=== PATIENT | female | born 1985 | race Caucasian/White ===

== ENCOUNTER → 2018-01-26 12:38 | Outpatient (CLI) | payer OTHER, SELFPAY ==
[2018-01-26 13:48] LABS: Absolute Lymphocyte Count 1.19 X10^3/ul (0.83-4.51); Absolute Neutrophil Count 5.2 X10^3/uL (2.0-7.7); Basophil# 0.02 X10^3/uL; Basophil% 0.3 % (0-1); Eosinophil# 0.09 X10^3/uL; Eosinophils% 1.3 % (0-5); Hematocrit 38.8 % (37-47); Hemoglobin 12.9 g/dl (12.0-15.0); Lymphocyte # 1.19 X10^3/ul (4.0); Lymphocyte % 17.1 % (19-41); Mean Corp Hgb Conc 33.2 g/gl (32-36); Mean Corpuscular Hgb 30.3 pg (27.0-32.0); Mean Corpuscular Volume 91.1 fL (81-99); Mean Platelet Vol. 10.2 fl (6.2-12.0); Monocyte# 0.43 X10^3/uL; Monocyte% 6.2 % (0-10); Neutrophil # 5.23 X10^3/uL (2.7-7.7); Platelet Count 264 K/mm3 (150-450); RBC Distribution Width CV 13.3 % (11.6-14.6); RBC Distribution Width SD 43.9 fl (35.1-43.9); Red Blood Count 4.26 M/mm3 (4.2-5.4)
[2018-01-26 13:53] LABS: POSITIVE COUNT NO; POSITIVE DIFFERENTIAL NO; POSITIVE MORPHOLOGY NO
[2018-01-26 16:37] LABS: Chlamydia Trachomatis by PCR Negative (Negative); Neisserai gonorrhoeae by PCR Negative (Negative); Probe Check PASS; Sample Adequacy Control PASS; Specimen Processing Control PASS
[2018-01-27 02:29] LABS: Rapid Plasmin Reagin (RPR) NONREACTIVE (NONREACTIVE)
[2018-01-27 09:01] LABS: HEPATITIS B SURFACE AG Negative (Negative)
[2018-01-27 13:43] LABS: HIV - WCH Non-Reactive (Nonreactive); Rubella IgG 170.7 IU/mL
== END ==
PROVIDERS: Visit Provider Obstetrics & Gynecology
DX: Z34.90 Encounter for supervision of normal pregnancy, unspecified, unspecified trimester (principal); Z3A.00 Weeks of gestation of pregnancy not specified
CPT/HCPCS: 36415; 85025; 86592; 86703; 86762; 86850; 86900; 87086; 87088; 87340; 87491; 87591

== ENCOUNTER → 2018-03-28 15:39 | Outpatient (CLI) | payer OTHER, SELFPAY | PROVIDERS: Referring Provider Nurse Practitioner Women's Health; Visit Provider Nurse Practitioner Women's Health | DX: Z36.9 Encounter for antenatal screening, unspecified (principal) | CPT/HCPCS: 36415 ==

== ENCOUNTER → 2018-06-16 16:45 | Outpatient (CLI) | payer OTHER, SELFPAY ==
[2018-06-16 15:46] VITALS: BMI 30.5
[2018-06-16 17:05] LABS: Absolute Lymphocyte Count 1.71 X10^3/ul (0.83-4.51); Absolute Neutrophil Count 6.2 X10^3/uL (2.0-7.7); Basophil# 0.01 X10^3/uL; Basophil% 0.1 % (0-1); Eosinophil# 0.24 X10^3/uL; Eosinophils% 2.7 % (0-5); Hematocrit 36.2 % (37-47); Hemoglobin 11.9 g/dl (12.0-15.0); Lymphocyte # 1.71 X10^3/ul (4.0); Lymphocyte % 19.3 % (19-41); Mean Corp Hgb Conc 32.9 g/gl (32-36); Mean Corpuscular Hgb 30.4 pg (27.0-32.0); Mean Corpuscular Volume 92.6 fL (81-99); Mean Platelet Vol. 10.4 fl (6.2-12.0); Monocyte# 0.73 X10^3/uL; Monocyte% 8.2 % (0-10); Neutrophil # 6.16 X10^3/uL (2.7-7.7); Neutrophil % 69.4 % (47-70); POSITIVE COUNT NO; POSITIVE DIFFERENTIAL NO; POSITIVE MORPHOLOGY NO; Platelet Count 294 K/mm3 (150-450); RBC Distribution Width CV 12.5 % (11.6-14.6); RBC Distribution Width SD 41.4 fl (35.1-43.9); Red Blood Count 3.91 M/mm3 (4.2-5.4); White Blood Count 8.9 K/mm3 (4.4-11.0)
[2018-06-16 18:03] LABS: Glucose Challenge Gest 1H 50g 67 mg/dL (70-140)
== END ==
PROVIDERS: Referring Provider Obstetrics & Gynecology; Visit Provider Obstetrics & Gynecology
DX: Z34.90 Encounter for supervision of normal pregnancy, unspecified, unspecified trimester (principal)
CPT/HCPCS: 36415; 82950; 85025; 86850; 86900

== ENCOUNTER 2018-06-30 15:58 | Emergency (ER) | payer OTHER, SELFPAY ==
[2018-06-30 15:44] VITALS: BMI 30.5
[2018-06-30 15:59] VITALS: BP 111/71; PULSE 88; RESP 19; TEMP 36.1; O2SAT 97; BMI 31.3
--- NOTE | 2018-06-30 16:33 | ED.VISSUMM ---
- ER Visit Summary Date of Service: 06/30/18 Chief Complaint: Left posterior thigh pain History of Present Illness: The patient is a 32 F who presents with left posterior thigh pain. She was sent here by Dr. Ordaz. She is in her third trimester. She has had this pain for 1 month. It is worse with movement. It is in the back part of the thigh. She has no history of DVT or PE. She has no risk factors for DVT or PE. The pain is worse this week which is why she came in. She does not take anything for this at home. She denies any chest pain or shortness of breath. Physical Examination: Vital signs reviewed. Left lower extremity reveals no swelling. There is no tenderness. There is no skin changes. No palpable cords. Pain is slightly worse with movement. Otherwise her exam is unremarkable Test Results: Duplex ultrasound negative for DVT Emergency Department Course and Treatment: Patient was given Tylenol. She will continue Tylenol, ice and heat at home. She will follow-up with her CERTIFIED REGISTERED DENTAL ASSISTANT Treatment Plan: [] Disposition: Discharge Impression: Left hamstring pain This note was generated with Ravti dictation software. It may contain incorrect words, spelling, and punctuation that were not noted in review of the chart prior to signing ED Disposition - Plan for ED Patient: Referrals: Care Physician,No Primary [Primary Care Provider] -
[2018-06-30] MEDS: Acetaminophen 325 MG Tablet 650 MG PO (16:38)
--- NOTE | 2018-06-30 16:42 | US_ITS ---
STUDY: VENOUS DOPPLER ULTRASOUND - LEFT LOWER EXTREMITY REASON FOR EXAM: Female, 32 years old. Left leg pain TECHNIQUE: Ultrasound evaluation of the deep vein system to include gary-scale imaging and compression was performed. Gary-scale imaging and Doppler sonographic evaluation, including duplex spectral analysis and qualitative color flow sonography, was performed. COMPARISON: None. FINDINGS: Common Femoral Vein: Normal compression, spontaneity and augmentation. Normal color Doppler. Common Femoral Vein/Greater Saphenous Junction: Normal compression, spontaneity and augmentation. Normal color Doppler. Femoral Proximal: Normal compression, spontaneity and augmentation. Normal color Doppler. Femoral Middle: Normal compression, spontaneity and augmentation. Normal color Doppler. Femoral Distal: Normal compression, spontaneity and augmentation. Normal color Doppler. Popliteal Vein: Normal compression, spontaneity and augmentation. Normal color Doppler. Posterior Tibial Vein: Normal compression, spontaneity and augmentation. Normal color Doppler. Peroneal Vein: Normal compression, spontaneity and augmentation. Normal color Doppler. US/Venous Duplex Imag/Limited/Uni IMPRESSION: Normal venous Doppler ultrasound of the lower extremity. Electronically Signed: Anton Vo DO at 17:53 EST Tel , Service support ,
--- NOTE | 2018-06-30 17:43 | ED.DEP ---
ED Disposition - Plan for ED Patient: Disposition: Home or Assisted Living Instructions: ED Strain Muscle Ext Referrals: Care Physician,No Primary [Primary Care Provider] -
== END 2018-06-30 17:53 | disposition home or self-care (01) ==
PROVIDERS: Emergency Provider Emergency Medicine
DX: O26.893 Other specified pregnancy related conditions, third trimester (principal); M79.652 Pain in left thigh; R11.0 Nausea; Z3A.00 Weeks of gestation of pregnancy not specified
CPT/HCPCS: 93971; 99283

== ENCOUNTER → 2018-08-11 16:47 | Outpatient (CLI) | payer OTHER, SELFPAY ==
[2018-08-11 16:01] VITALS: BMI 31.3
== END ==
PROVIDERS: Referring Provider Obstetrics & Gynecology; Visit Provider Obstetrics & Gynecology
DX: Z34.90 Encounter for supervision of normal pregnancy, unspecified, unspecified trimester (principal)
CPT/HCPCS: 87081

== ENCOUNTER 2018-09-01 14:15 | Inpatient (IN) | payer OTHER, SELFPAY ==
[2018-06-16 15:46] VITALS: BMI 30.5
[2018-09-01] VITALS (13 sets, daily range): BP systolic 107–124; BP diastolic 55–82; PULSE 61–83; RESP 16–18; TEMP 36.1–36.6; O2SAT 95–100; BMI 31.9; BMI 31.2
[2018-09-01] MEDS: Lactated Ringers 1,000 ML 999 ML IV (14:50)
[2018-09-01 16:07] LABS: Absolute Lymphocyte Count 1.48 X10^3/ul (0.83-4.51); Absolute Neutrophil Count 5.5 X10^3/uL (2.0-7.7); Basophil# 0.01 X10^3/uL; Basophil% 0.1 % (0-1); Eosinophil# 0.16 X10^3/uL; Eosinophils% 2.1 % (0-5); Hematocrit 33.1 % (37-47); Hemoglobin 10.8 g/dl (12.0-15.0); Lymphocyte # 1.48 X10^3/ul (4.0); Lymphocyte % 19.2 % (19-41); Mean Corp Hgb Conc 32.6 g/gl (32-36); Mean Corpuscular Hgb 28.4 pg (27.0-32.0); Mean Corpuscular Volume 87.1 fL (81-99); Mean Platelet Vol. 12.3 fl (6.2-12.0); Monocyte# 0.53 X10^3/uL; Monocyte% 6.9 % (0-10); Neutrophil # 5.49 X10^3/uL (2.7-7.7); Neutrophil % 71.2 % (47-70); Platelet Count 196 K/mm3 (150-450); RBC Distribution Width CV 13.9 % (11.6-14.6); RBC Distribution Width SD 43.7 fl (35.1-43.9); White Blood Count 7.7 K/mm3 (4.4-11.0)
[2018-09-01 16:09] LABS: Differential Indicated SCAN CRITERIA MET; POSITIVE COUNT YES; POSITIVE DIFFERENTIAL NO; POSITIVE MORPHOLOGY NO
[2018-09-01] MEDS: Sodium Citrate/Citric Acid 30 ML UDC PO (16:18)
[2018-09-01] MEDS: Lactated Ringers 1,000 ML 150 ML IV (16:18)
[2018-09-01] MEDS: Oxytocin 30 units/NS 500 ml 30 UNITS/500 ML IV.SOLN 167 UNITS IV (16:55)
[2018-09-01] MEDS: Ketorolac 30 MG/ML Syringe IV ×2 (17:19→23:25)
--- NOTE | 2018-09-01 17:25 | HP.PCM_ITS ---
- Problem List (1) Oligohydramnios in malagon in third trimester Status: Acute (2) History of delivery Status: Acute Comment: desires tolac- consent signed. 57-72% likelihood of success. (3) Status: Acute Qualifiers: Comment: declines genetic and carrier screening. AFP negative. MFM US anatomy normal-Echogenic foci adjacent to the stomach noted again. (4) Rh negative status during Status: Acute Qualifiers: Comment: rhogam prn and at 28 weeks (5) Supervision of normal Status: Acute Qualifiers: Comment: PRR VIVIAN 09/04/18 gender surprise PC Zina Doyle History and Physical Date of Admission: 09/01/18 Intake Vital Signs 09/01/18 Body Mass Index (BMI) 31.9 09/01/18 Height 5 ft 4 in 09/01/18 Weight: 184 lb 8 oz 09/01/18 Body Mass Index (BMI) 31.6 09/01/18 Blood Pressure 128/82 H 09/01/18 Blood Pressure Location Lt brachial 09/01/18 Blood Pressure Position Sitting Intake Visit Reasons: 39 WEEK OB Accompanied by: Self Allergies amoxicillin Allergy (Mild, Verified 09/01/18 09:51) rash Penicillins Allergy (Mild, Verified 09/01/18 09:51) unknown Medications docosahexanoic acid 200 mg capsule 400 mg PO DAILY 01/26/18 [History Confirmed 09/01/18] Last Menstral Period: 11/28/17 Zika: Zika virus screening: Negative : No PFSH PFSH Medical History Abnormal Pap smear of cervix (Acute) Surgical History History of colposcopy (Resolved) S/P (Resolved) Social History Smoking Status: Never smoker alcohol intake: never substance use type: does not use caffeine: Yes what type of physical activity do you participate in: walking frequency: 3-4 times per week seatbelt use: always do you feel safe at home: Yes additional social history: [id number] Patient is a teacher Pregancy History 2 Elective abortions Hx Para 1 Spontaneous abortions Hx # Term Pregnancies Ectopic pregnancies Hx # Pregnancies Multiple births # of living children Past Pregnancies Del. Date Name GA/Weeks Outcome Route Bth Weight Gen Labor Lgth Anesthesia Del Locatn Provider FOB 11/12/16 Zina 40 live - full term 7lbs 9oz Female spinal [facility] Dr. Dionna Kwon Delivery Date: 11/12/16 On 01/26/18 @ 12:05 Melody Ordaz failed induction then came back in another day and was induced, questionable adequate trial of pushing. HPI 39 WEEK OB: Details: MAXIMO MARTINEZ is a 33 year old who presents for routine OB visit. OB Visit VIVIAN Calculator Estimated Delivery Date 09/04/18 Based on LMP (certain) 11/28/17 Current WG 39w 4d Number 1 Expected Delivery Route/Plan consider , 57-72 % of success, uptodate education given and reviewed risks and benefits of TOLAC. patient wishes to proceed, consent signed Specific Issue/Plans flu vaccine: declines tdap vaccine: given rhogam: given 28 weeks LARC form signed: declined labor support person: Doyle pain management: epidural cut cord/dad catch: ? : yes PP control planned: none special requests: Initial Weight: 165 lb Date EGA Weight BP Urine Prot Glucose FHR FuHt Pres Mov CTX Dilation Effaced St Visit Note 02/22/18 12w 2d 165 lb (+0 oz) 116/62 Negative Negative 160 Doing well. No VB, LOF. Mild and manageable nausea 03/24/18 16w 4d 164 lb 6 oz (-10 oz) 112/66 Negative Negative 157 Doing well. No VB, LOF. 04/21/18 20w 4d 171 lb (+6 lb) 120/68 Positive Negative 150 no uti complaints no vb cramping education given 05/19/18 24w 4d 172 lb (+7 lb) 118/72 Negative Negative 150 no vb lof good fm no regular ctx. 06/16/18 28w 4d 178 lb (+13 lb) 120/68 150 28 no vb lof good fm no regular ctx 06/30/18 30w 4d 183 lb 6 oz (+18 lb 6 oz) 124/72 Negative Negative 130 31 co left thigh pain increasing- recommend doppler of lower extremity. no vb lof good fm no regular ctx 07/14/18 32w 4d 183 lb (+18 lb) Negative Negative 145 32 no vb lof good fm no regular ctx 07/28/18 34w 4d 182 lb (+17 lb) 120/78 Negative Negative 143 34 Active absent NO VB, LOF. Doing well. 08/11/18 36w 4d 185 lb 6 oz (+20 lb 6 oz) 138/80 Trace Negative 140 36 Cephalic Active absent 0.5 no vb lof good fm no regular ctx gbs 08/18/18 37w 4d 185 lb (+20 lb) 128/76 Negative Negative 140 37 Cephalic Active absent no vb lof good fm n oregualr ctx 08/25/18 38w 4d 186 lb (+21 lb) 122/70 Negative Negative 140 38 Cephalic Active absent 1.5 2: 0 -4 no vb lof good fm no regular ctx 09/01/18 39w 4d 184 lb 8 oz (+19 lb 8 oz) 128/82 Negative Negative 140 37 Cephalic Active absent 1.5 2: 0 -2 no vb lof good fm n oregualr ctx, fundal height low- rinku 3.7 cm unfavorable cervix recommend RLTCS. patient agreeable. schedule for 5 o clock today Visit Notes Visit Date: 09/01/18 ??fundal height low- rinku 3.7 cm unfavorable cervix recommend RLTCS. patient agreeable. schedule for 5 o clock today ??Melody Ordaz MD on 09/01/18 ??no vb lof good fm n oregualr ctx, ??Melody Ordaz MD on 09/01/18 Visit Date: 08/25/18 ??no vb lof good fm no regular ctx ??Melody Ordaz MD on 08/25/18 Visit Date: 08/18/18 ??no vb lof good fm n oregualr ctx ??Melody Ordaz MD on 08/18/18 Visit Date: 08/11/18 ??no vb lof good fm no regular ctx gbs ??Melody Ordaz MD on 08/11/18 Visit Date: 07/28/18 ??NO VB, LOF. Doing well. ??ADI Ballesteros on 07/28/18 Visit Date: 07/14/18 ??no vb lof good fm no regular ctx ??Melody Ordaz MD on 07/14/18 Visit Date: 06/30/18 ??co left thigh pain increasing- recommend doppler of lower extremity. no vb lof good fm no regular ctx ??Melody Ordaz MD on 06/30/18 Visit Date: 06/16/18 ??no vb lof good fm no regular ctx ??Melody Ordaz MD on 06/16/18 Visit Date: 05/19/18 ??no vb lof good fm no regular ctx. ??Melody Ordaz MD on 05/19/18 Visit Date: 04/21/18 ??no uti complaints no vb cramping education given ??Melody Ordaz MD on 04/21/18 Visit Date: 03/24/18 ??Doing well. No VB, LOF. ??ADI Ballesteros on 03/24/18 Visit Date: 02/22/18 ??Doing well. No VB, LOF. Mild and manageable nausea ??ADI Ballesteros on 02/22/18 ACOG First Trimester First Trimester: Desire for , Alcohol, Tobacco Cessation, Illicit/Recreational Drug/Substance Use, Intimate Partner Violence, Barriers to care, Unstable Housing, Communication Barriers, Environmental/Work Hazards, Anticipated Course of Care, Toxoplasmosis Precations, Use of Any medications, Sexual activity, Exercise, Dental Care, Sauna/Hot tub use, Seat Belt use, Childbirth classes/Hospital facilities, , Travel, Indications for US and Screening for Aneuploidy Second Trimester Second Trimester: Signs and Symptoms of Labor, Selecting a care provider, Reproductive Life Planning, Care Planning, Tobacco Cessation, Depression/Anxiety and Intimate Partner Violence Third Trimester Third Trimester: Pain Management Plans, Labor support person(s), Immediate Larc, Movement Monitoring and Feeding Yes ; discussed Trial of Labor after Counseling or discussed Circumcision preference Diagnostics Diagnostics Labs Blood Type B NEGATIVE 06/16/18 Antibody Screen NEGATIVE 06/16/18 Hct 36.2 % (37-47) L 06/16/18 Hgb 11.9 g/dl (12.0-15.0) L 06/16/18 Glucose 1 Hr 50 gm 67 mg/dL (70-140) L 06/16/18 Miscellaneous Test 03/28/18 Details: HIV: Urine Culture: Sequential Screen: NIPT Screen: ROS Const Reports system reviewed and no additional complaints, except as docu Card Reports system reviewed and no additional complaints, except as docu Resp Reports system reviewed and no additional complaints, except as docu GI Reports system reviewed and no additional complaints, except as docu, Reports nausea Reports system reviewed and no additional complaints, except as docu Musc Reports system reviewed and no additional complaints, except as docu Exam Const General: cooperative, healthy appearing, comfortable, anxious HENMT Head: normal to inspection Nose: external nose normal Face and sinus: normal facial exam Neck Neck: normal visual inspection, full ROM, no lymphadenopathy Thyroid: thyroid normal Chest Chest palpation & inspection: normal inspection of the chest Resp Effort & Inspection: normal respiratory effort GI Inspection: normal to inspection Palpation: soft, other (gravid uterus) Other: infant vertex and appropriate size for gestational age Other: Cervical Exam: Extrem General: pedal edema Results [id number] Office Urine Glucose Negative Last Edit by Jazz Tsai on 09/01/18 10:00 Office Urine Protein Negative Last Edit by Jazz Tsai on 09/01/18 10:00 Assessment & Plan Problems 1. Rh negative status during in third trimester O26.893 rhogam prn and at 28 weeks 2. Encounter for supervision of other normal in third trimester Z34.83 PRR VIVIAN 09/04/18 gender surprise PC Zina Doyle 3. 39 weeks gestation of Z3A.39 declines genetic and carrier screening. AFP negative. MFM US anatomy normal-Echogenic foci adjacent to the stomach noted again. 4. History of delivery Z98.891 desires tolac- consent signed. 57-72% likelihood of success. Plan plan RLTCS for oligo. Orders Orders: POC Urinalysis 2 Dip (Clinic) Today OB NST Today O41.00X0 Coding Level of Care Code OB Routine Diagnoses Rh negative status during in third trimester O26.893 ??Trimester: third trimester Encounter for supervision of other normal in third trimester Z34.83 ??Normal : other normal ??Trimester: third trimester 39 weeks gestation of Z3A.39 ??Weeks of gestation: 39 weeks History of delivery Z98.891 UPDATE- I have seen the patient and performed any clinically relevant updates to the history and physical exam. Melody Ordaz MD
--- NOTE | 2018-09-01 17:25 | PCM.OPRPT ---
Problem List (1) Oligohydramnios in malagon in third trimester Status: Acute (2) History of delivery Status: Acute Comment: desires tolac- consent signed. 57-72% likelihood of success. (3) Status: Acute Qualifiers: Comment: declines genetic and carrier screening. AFP negative. MFM US anatomy normal-Echogenic foci adjacent to the stomach noted again. (4) Rh negative status during Status: Acute Qualifiers: Comment: rhogam prn and at 28 weeks (5) Supervision of normal Status: Acute Qualifiers: Comment: PRR VIVIAN 09/04/18 gender surprise PC Zina Doyle Delivery Classification: Scheduled Final VIVIAN: 09/04/18 Gestational age: 39 Weeks and 5 Days Indications: Oligohydramnios Indications for : Repeat Elective Description of Procedure: The patient is a 33-year-old at 39 weeks 4 days with oligohydramnios presented for repeat . Spinal anesthesia was placed without difficulty. La catheter was placed. The patient was placed in the dorsal supine position with leftward tilt. Patient was prepped and draped in the normal sterile fashion. Pfannenstiel skin incision was made with the scalpel and carried through to the underlying layer of fascia with the scalpel. Fascia was nicked in the midline and the incision extended laterally. The rectus bellies were dissected off superiorly and inferiorly with out complication both sharply and bluntly. The peritoneum was entered digitally. The incision was stretched and a low transverse uterine incision was made with the scalpel. The infant's head was delivered atraumatically followed by the anterior and posterior shoulders without complication the rest of the delivered. The cord was clamped and cut and the was handed off to awaiting nurse. The placenta was delivered spontaneously immediately following and was noted to be intact and have a three-vessel cord. The uterus was exteriorized cleared of all clots and debris, and the incision was closed in a double layer closure using #1 Monocryl. The uterus was returned to the maternal abdomen and gutters were cleared of all clots and debris. The ovaries and fallopian tubes were noted to be within normal limits. The peritoneum was closed with 3-0 Monocryl in a running fashion. Fascia was closed with 0 PDS in a running fashion. Subcutaneous tissue was copiously irrigated and the skin was closed with 3-0 Monocryl in a subcuticular fashion. Steri-Strips and Mepilex dressing were applied without complication. Patient was taken to recovery in stable condition. I discussed with patient the minimal amount of scar tissue and the excellent integrity of the uterus that it may be very reasonable for her to have a trial of labor after 2 previous C-sections with her next if desired. Amniotic Membrane Rupture Type: Spontaneous Amniotic Fluid Description: Clear Placenta Disposition: [facility] Specimen(s) sent to pathology: placenta Drain: La to straight drain Fluids Replaced: Crystalloid Cord Entanglement: None Esitmated Blood Loss (ml): 600 Infant Gender: Female Delayed cord clamping: Yes Pre-op Antibiotic Given: Ancef 2 grams IV x1 Pt instructed on risks of surgery: Bleeding, Anesthesia Risks, Infection, Injury to surrounding structure(s) including bowel and bladder Complications: None
[2018-09-01] MEDS: Lactated Ringers 1,000 ML 100 ML IV ×2 (17:35→23:44)
--- NOTE | 2018-09-01 18:43 | NURSING ---
IV pump cleared and volume includes 1000 mL bolus upon arrival in preparation for .
[2018-09-01] MEDS: Ondansetron 4 MG/2 ML Vial IV (19:26)
[2018-09-02] VITALS (16 sets, daily range): BP systolic 103–116; BP diastolic 68–78; PULSE 57–84; RESP 16–18; TEMP 36.1–36.9; O2SAT 95–100
[2018-09-02] MEDS: Ketorolac 30 MG/ML Syringe IV ×4 (05:41→22:48)
[2018-09-02 05:59] LABS: Hematocrit 29.7 % (37-47); Hemoglobin 9.6 g/dl (12.0-15.0); Mean Corp Hgb Conc 32.3 g/gl (32-36); Mean Corpuscular Hgb 28.3 pg (27.0-32.0); Mean Corpuscular Volume 87.6 fL (81-99); Mean Platelet Vol. 10.8 fl (6.2-12.0); Platelet Count 195 K/mm3 (150-450); RBC Distribution Width CV 13.7 % (11.6-14.6); RBC Distribution Width SD 41.8 fl (35.1-43.9); Red Blood Count 3.39 M/mm3 (4.2-5.4); White Blood Count 8.3 K/mm3 (4.4-11.0)
[2018-09-02 06:00] LABS: Scan Indicated on CBC? Y/N NO
--- NOTE | 2018-09-02 08:19 | PN.OBGYN_ITS ---
Patient Problems: Active and Suspected Problems (Last Reviewed 08/25/18 @ 15:37 by Nuria Ribera) Oligohydramnios in malagon in third trimester (Acute) Subjective: doing well no complaints pain controlled no CP SOB N V ambulating well tolerating po lochia moderate, going well - Physical Exam General: Alert, Oriented x3 Vital Signs Temp Pulse Resp BP Pulse Ox 97.0 F L 61 16 103/68 96 09/02/18 05:40 09/02/18 05:40 09/02/18 05:40 09/02/18 05:40 09/02/18 05:40 Oxygen Delivery Method Room Air Weight: 182 lb Body Mass Index (BMI) 31.2 Intake and Output for Last 24 Hours 08/31/18 09/01/18 09/02/18 23:59 23:59 23:59 Intake Total 2498 / 2498 1800 / 1800 Output Total 775 / 775 800 / 800 Balance 1723 / 1723 1000 / 1000 Laboratory Tests Past 24 Hrs 09/01/18 09/01/18 09/01/18 14:45 14:45 14:45 WBC 7.7 RBC 3.80 L Hgb 10.8 L Hct 33.1 L MCV 87.1 MCH 28.4 MCHC 32.6 RDW 13.9 RDW Differential 43.7 Plt Count 196 MPV 12.3 H Immature Gran % (Auto) 0.500 Neut % (Auto) 71.2 H Lymph % (Auto) 19.2 Stoddard % (Auto) 6.9 Eos % (Auto) 2.1 Baso % (Auto) 0.1 Absolute Neuts (auto) 5.5 Absolute Lymphs (auto) 1.48 Total Counted Not Reportable Differential Comment Blood Type TNP B NEGATIVE Antibody Screen TNP NEGATIVE Screen Baby's Blood Type Baby's EDGAR 09/01/18 09/02/18 19:15 05:50 WBC 8.3 RBC 3.39 L Hgb 9.6 L Hct 29.7 L MCV 87.6 MCH 28.3 MCHC 32.3 RDW 13.7 RDW Differential 41.8 Plt Count 195 MPV 10.8 Immature Gran % (Auto) Neut % (Auto) Lymph % (Auto) Stoddard % (Auto) Eos % (Auto) Baso % (Auto) Absolute Neuts (auto) Absolute Lymphs (auto) Total Counted Differential Comment Blood Type Antibody Screen Screen NEGATIVE Baby's Blood Type B POSITIVE Baby's EDGAR NEGATIVE Medical Necessity - Tobacco Use Smoking Status: Never smoker Assessment/Plan All Active Problems (Last Reviewed 08/25/18 @ 15:37 by Nuria Ribera) Oligohydramnios in malagon in third trimester (Acute) Rh negative status during (Acute) Supervision of normal (Acute) (Acute) History of delivery (Acute) s/p LTCS PPD # 1 1. routine post care 2. breast feeding- support given 3. rh negative- rhogam PRN 4. rubella immune
[2018-09-02] MEDS: Lactated Ringers 1,000 ML 100 ML IV (09:40)
[2018-09-02] MEDS: 0.9% Saline Lock 10 ML Syringe IV ×3 (11:21→22:48)
[2018-09-03 02:35] VITALS: BP 99/59; PULSE 69; RESP 18; TEMP 36.5
[2018-09-03] MEDS: Ketorolac 30 MG/ML Syringe IV (05:19)
[2018-09-03] MEDS: 0.9% Saline Lock 10 ML Syringe IV (05:19)
[2018-09-03 08:46] VITALS: BP 112/67; PULSE 70; RESP 18; TEMP 36.6; O2SAT 99
--- NOTE | 2018-09-03 09:50 | PCM.PN.OB ---
Patient Problems: Active and Suspected Problems (Last Reviewed 08/25/18 @ 15:37 by Nuria Ribera) Oligohydramnios in malagon in third trimester (Acute) Subjective: doing well no complaints pain controlled no CP SOB N V ambulating well tolerating po lochia moderate, going well - Physical Exam General: Alert, Oriented x3 Vital Signs Temp Pulse Resp BP Pulse Ox 97.8 F 70 18 112/67 99 09/03/18 08:46 09/03/18 08:46 09/03/18 08:46 09/03/18 08:46 09/03/18 08:46 Oxygen Delivery Method Room Air Weight: 182 lb Body Mass Index (BMI) 31.2 Intake and Output for Last 24 Hours 09/01/18 09/02/18 09/03/18 23:59 23:59 23:59 Intake Total 2498 / 2498 2361 / 2361 Output Total 775 / 775 2950 / 2950 Balance 1723 / 1723 -589 / -589 Medical Necessity - Tobacco Use Smoking Status: Never smoker Assessment/Plan All Active Problems (Last Reviewed 08/25/18 @ 15:37 by Nuria Ribera) Oligohydramnios in malagon in third trimester (Acute) Rh negative status during (Acute) Supervision of normal (Acute) (Acute) History of delivery (Acute) s/p LTCS PPD # 2 1. routine post care 2. breast feeding- support given 3. rh negative- rhogam PRN 4. rubella immune
--- NOTE | 2018-09-03 09:52 | DCINST_ITS ---
Discharge Diet: No Restrictions Discharge Activity: Return to Normal Activity, May not drive while taking narcotic pain medications., May Shower May resume sexual activity in: 4-6 weeks Call your doctor if your incision/area has: Continuous Slow Oozing, Sudden Increased Bleeding, Increased Pain/ Swelling, Increased Redness, Foul Smelling Discharge Additional Instructions: If you experience any of the following, contact your healthcare provider. * Bleeding that soaks a pad every hour for 2 hours * Fever 100.4 or higher * Unrelieved incision or abdominal pain * Swelling, redness, discharge or bleeding from your incision or episiotomy site * Your incision begins to separate * Problems urinating (including inability to urinate or burning while urinating). * Visual changes * Severe headache * Flu-like symptoms * Pain or redness in one of both of your breasts * Pain, warmth, tenderness or swelling in your legs, especially the calf area * Frequent nausea and vomiting * Symptoms of depression or anxiety If you experience any of the following, call 911 or go to the nearest Emergency Room. * Chest pain * Problems breathing * Seizure activity * Partial or complete paralysis of a body part, slurred speech, weakness or drooping of the face, or a sudden inability to walk or hold your balance Allergies/Adverse Reactions: Allergies amoxicillin Allergy (Mild, Verified 09/01/18 14:26) rash Penicillins Allergy (Mild, Verified 09/01/18 14:26) unknown Medications to take at Discharge docosahexanoic acid 200 mg capsule 400 mg PO DAILY 01/26/18 Please Follow Up With: Melody Ordaz MD - [phone] When: Call to make an appointment with your doctor in 6 weeks. If you had elevated Blood pressure or 4th degree laceration you will need to be seen in 2 weeks. Primary Care Physician: Care Physician,No Primary [Primary Care Provider] - Test Results: Test results from this visit will be discussed in further detail at your follow- up appointment, if applicable.
--- NOTE | 2018-09-03 09:52 | PCM.DCVAG ---
Discharge Diet: No Restrictions Discharge Activity: Return to Normal Activity, May not drive while taking narcotic pain medications., May Shower May resume sexual activity in: 4-6 weeks Call your doctor if your incision/area has: Continuous Slow Oozing, Sudden Increased Bleeding, Increased Pain/ Swelling, Increased Redness, Foul Smelling Discharge Additional Instructions: If you experience any of the following, contact your healthcare provider. Bleeding that soaks a pad every hour for 2 hours Fever 100.4 or higher Unrelieved incision or abdominal pain Swelling, redness, discharge or bleeding from your incision or episiotomy site Your incision begins to separate Problems urinating (including inability to urinate or burning while urinating). Visual changes Severe headache Flu-like symptoms Pain or redness in one of both of your breasts Pain, warmth, tenderness or swelling in your legs, especially the calf area Frequent nausea and vomiting Symptoms of depression or anxiety If you experience any of the following, call 911 or go to the nearest Emergency Room. Chest pain Problems breathing Seizure activity Partial or complete paralysis of a body part, slurred speech, weakness or drooping of the face, or a sudden inability to walk or hold your balance Allergies/Adverse Reactions: Allergies amoxicillin Allergy (Mild, Verified 09/01/18 14:26) rash Penicillins Allergy (Mild, Verified 09/01/18 14:26) unknown Medications to take at Discharge docosahexanoic acid 200 mg capsule 400 mg PO DAILY 01/26/18 Please Follow Up With: Melody Ordaz MD - [phone] When: Call to make an appointment with your doctor in 6 weeks. If you had elevated Blood pressure or 4th degree laceration you will need to be seen in 2 weeks. Primary Care Physician: Care Physician,No Primary [Primary Care Provider] - Test Results: Test results from this visit will be discussed in further detail at your follow-up appointment, if applicable.
== END 2018-09-03 10:30 | disposition home or self-care (01) | DRG 788 ==
PROVIDERS: Admitting Provider Obstetrics & Gynecology; Referring Provider Obstetrics & Gynecology; Visit Provider Obstetrics & Gynecology
PROC: (CPT 59514; principal; 2018-09-01 16:30)
DX: O41.03X0 Oligohydramnios, third trimester, not applicable or unspecified (principal); O34.219 Maternal care for unspecified type scar from previous cesarean delivery; Z3A.39 39 weeks gestation of pregnancy; Z37.0 Single live birth
CPT/HCPCS: 85025; 85027; 85461; 86850; 86900; 86901; 90384; 99218; J7120; A4216; G0378; J2405; J2790

== ENCOUNTER → 2018-10-13 16:44 | Outpatient (CLI) | payer OTHER, SELFPAY ==
[2018-10-13 14:14] VITALS: BMI 28.8
[2018-10-19 16:07] LABS: HPV Genotype 16, Aptima Negative (Negative)
[2018-10-20 11:45] LABS: HPV APTIMA, High Risk Positive (Negative); HPV Genotype 18,45 Aptima Negative (Negative)
== END ==
PROVIDERS: Referring Provider Obstetrics & Gynecology; Visit Provider Obstetrics & Gynecology
DX: Z12.4 Encounter for screening for malignant neoplasm of cervix (principal)
CPT/HCPCS: 87624; 88175; G0145

== ENCOUNTER → 2020-02-13 10:08 | Outpatient (CLI) | payer BC, SELFPAY ==
[2020-02-13 09:19] VITALS: BMI 27.8
== END ==
PROVIDERS: Referring Provider Obstetrics & Gynecology; Visit Provider Obstetrics & Gynecology
DX: O20.0 Threatened abortion (principal)
CPT/HCPCS: 36415; 86850; 86900; 86901

== ENCOUNTER → 2020-02-20 10:24 | Outpatient (CLI) | payer BC, SELFPAY ==
[2020-02-20 09:04] VITALS: BMI 28.8
[2020-02-20 11:25] LABS: Absolute Lymphocyte Count 1.25 X10^3/uL (0.83-4.51); Absolute Neutrophil Count 5.3 X10^3/uL (2.0-7.7); Basophil# 0.04 X10^3/uL; Basophil% 0.6 % (0-1); Eosinophil# 0.13 X10^3/uL; Eosinophils% 1.8 % (0-5); Hematocrit 37.4 % (37-47); Lymphocyte # 1.25 X10^3/ul (4.0); Lymphocyte % 17.3 % (19-41); Mean Corp Hgb Conc 32.1 g/dL (32-36); Mean Corpuscular Hgb 29.8 pg (27.0-32.0); Mean Corpuscular Volume 92.8 fL (81-99); Mean Platelet Vol. 10.6 fl (6.2-12.0); Monocyte# 0.49 X10^3/uL; Monocyte% 6.8 % (0-10); NRBC Flagged by Analyzer 0 % (0-5); Neutrophil # 5.27 X10^3/uL (2.7-7.7); Neutrophil % 72.9 % (47-70); Platelet Count 273 K/mm3 (150-450); RBC Distribution Width SD 47.1 fl (35.1-43.9); Red Blood Count 4.03 M/mm3 (4.2-5.4); White Blood Count 7.2 K/mm3 (4.4-11.0)
[2020-02-20 12:28] LABS: HIV - WCH Non-Reactive (Nonreactive); Hepatitis B Surface Antigen Non-Reactive (Nonreactive); Hepatitis C Antibody Non-Reactive (Nonreactive); Rubella IgG 166.4 IU/mL
[2020-02-20 14:23] LABS: Amphetamine Urine VISTA NEGATIVE (<1000 ng/mL); Barbiturate Urine VISTA NEGATIVE (< 200 ng/mL); Benzodiazepine Urine VISTA NEGATIVE (< 200 ng/mL); Cocaine Urine VISTA NEGATIVE (< 300 ng/mL); Ecstacy Urine VISTA NEGATIVE (< 500 ng/mL); Methadone Urine VISTA NEGATIVE (< 300 ng/mL); PCP Urine VISTA NEGATIVE (< 25 ng/mL); THC Urine VISTA NEGATIVE (< 50 ng/mL); Vista UDS pH Range 7
[2020-02-21 01:34] LABS: Rapid Plasmin Reagin (RPR) NONREACTIVE (NONREACTIVE)
[2020-02-23 03:06] LABS: Chlamydia By Nucleic Acid AMP Negative (Negative)
[2020-02-23 14:12] LABS: Gonococcus By Nucleic Acid AMP Negative (Negative)
== END ==
PROVIDERS: Referring Provider Obstetrics & Gynecology; Visit Provider Obstetrics & Gynecology
DX: Z34.80 Encounter for supervision of other normal pregnancy, unspecified trimester (principal)
CPT/HCPCS: 36415; 80307; 85025; 86592; 86703; 86762; 86803; 87086; 87088; 87340; 87491; 87591

== ENCOUNTER → 2020-02-22 15:22 | Outpatient (CLI) | payer BC, SELFPAY ==
[2020-02-20 09:04] VITALS: BMI 28.8
--- NOTE | 2020-02-22 15:23 | US_ITS ---
STUDY: FIRST TRIMESTER OBSTETRICAL ULTRASOUND REASON FOR EXAM: Female, 34 years old VIABILITY LMP: TECHNIQUE: Transvaginal TECHNICAL QUALITY: Adequate. PRIOR ULTRASOUND: None. FINDINGS: There is visualization of a single gestational sac in a normal intrauterine position. The mean sac diameter (MSD) measures 8.34 cm, indicating an estimated gestational age (EGA) of 12 weeks, 4 days. The gestational sac shape is within normal limits. There is a visualized yolk sac. The yolk sac measures 0.4 cm. The placenta is non-visualized. There is visualization of a live embryo. The crown-rump length (CRL) measures 4.4 cm, indicating an estimated gestational age (EGA) of 11 weeks, 0 days. There is demonstrated cardiac activity with a heart rate of 150 bpm. The estimated gestation age (EGA) by LMP is 10 weeks, 1 days. The estimated date of delivery (VIVIAN) by LMP is 09/18/2020. The estimated gestation age (EGA) by US is 11 weeks, 5 days. The estimated date of delivery (VIVIAN) by US is 09/08/2020. The uterus measures 11.9 x 10.7 x 7.6 cm. There is no demonstrated uterine fibroid. The cervix is closed. There is a large anechoic area adjacent to the gestational sac likely representing subchorionic bleed. The right ovary measures 3.5 x 2.3 x 1.2 cm. There is no right ovarian cyst. There is no visualized right adnexal mass or complex lesion. Left ovary is not visualized. There is no adnexal mass.. There is no fluid in the cul de sac. US/Init OB < 14Wks US IMPRESSION: Viable intrauterine gestation approximately 11 weeks gestational age. Large subchorionic bleed Electronically Signed: Marcio Gilbert MD at 17:02 EDT , Service support ,
== END ==
PROVIDERS: Referring Provider Obstetrics & Gynecology; Visit Provider Obstetrics & Gynecology
DX: O41.8X90 Other specified disorders of amniotic fluid and membranes, unspecified trimester, not applicable or unspecified (principal); O46.8X1 Other antepartum hemorrhage, first trimester; Z3A.11 11 weeks gestation of pregnancy
CPT/HCPCS: 76801

== ENCOUNTER 2020-03-01 18:54 | Emergency (ER) | payer BC, SELFPAY ==
[2020-02-20 09:04] VITALS: BMI 28.8
[2020-03-01 18:57] VITALS: BP 147/94; PULSE 84; RESP 16; TEMP 36.3; O2SAT 100; BMI 28.4
--- NOTE | 2020-03-01 19:15 | US_ITS ---
STUDY: FIRST TRIMESTER OBSTETRICAL ULTRASOUND REASON FOR EXAM: Female, 34 years old CRAMPING/ PAIN/SPOTTING/ KNOWN SUBCHORIONIC HEMATOMA LMP: TECHNIQUE: TECHNICAL QUALITY: Adequate. PRIOR ULTRASOUND: 03/03/2020 FINDINGS: There is visualization of a single gestational sac in a normal intrauterine position. The gestational sac shape is within normal limits. There is a 5.6 x 2.7 x 6.4 cm subchorionic hemorrhage. There is a visualized yolk sac. The yolk sac measures 0.41. The placenta is non-visualized. There is visualization of a live embryo. The crown-rump length (CRL) measures 5.84 cm, indicating an estimated gestational age (EGA) of 12 weeks, 2 days. There is demonstrated cardiac activity with a heart rate of 146 bpm. The estimated gestation age (EGA) by LMP is 11 weeks, 2 days. The estimated date of delivery (VIVIAN) by LMP is 09/18/2020. The estimated gestation age (EGA) by US is 12 weeks, 2 days. The estimated date of delivery (VIVIAN) by US is 09/11/2020. The uterus measures 15.1 x 8.8 x 10.5 cm. There is no demonstrated uterine fibroid. The cervix is closed. The cervix measures 4.0 cm in length. The right ovary measures 3.7 x 2.2 x 3.2 cm. There is no right ovarian cyst. There is no visualized right adnexal mass or complex lesion. The left ovary measures 4.1 x 1.7 x 3.1 cm. There is no left ovarian cyst. There is no visualized left adnexal mass or complex lesion. There is no fluid in the cul de sac. US/Transvaginal w/Preg US IMPRESSION: Single intrauterine with an estimated gestational age of 12 weeks and 2 days. Large subchorionic hemorrhage. Electronically Signed: Sue Brar MD at 21:58 EDT Tel , Service support ,
--- NOTE | 2020-03-01 19:16 | ED.VIS.GEN ---
History of Present Illness Chief Complaint: Detail of Chief Complaint: Pelvic cramping Informant: Patient Onset: Today Current Severity: Mild Maximum Severity: Mild Narrative: Patient is currently 11 weeks and presents tonight with increased pelvic cramping. She was seen by OB last week and had an ultrasound that showed a large subchorionic bleed. She states has been spotting consistently for the past several weeks, not any worse tonight with cramping. She did talk to Jennifer Gracia, nurse helper metal hanging who advised her to come in for work-up and repeat ultrasound. She is currently G3, P2, Ab0. She does report a negative blood type but is up-to-date on her RhoGam shot. Past Medical History - Allergies and Home Meds Allergies/Adverse Reactions: Allergies amoxicillin Allergy (Mild, Verified 03/01/20 18:58) rash Penicillins Allergy (Mild, Verified 03/01/20 18:58) unknown Primary Care Physician: Care Physician,No Primary [Primary Care Provider] - Prior records reviewed: Yes Lives: With Family Smoking Status: Never smoker Review of Systems General: Denies: Chills, Fever Eyes: Denies: Visual changes - bilaterally ENT: Denies: Bilateral ear pain Cardiovascular: Denies: Chest pain Respiratory: Denies: Dyspnea, Cough Gastrointestinal: Reports: Abdominal pain. Denies: Vomiting, Diarrhea Genitourinary: Denies: Dysuria Musculoskeletal: Denies: Extremity Pain Skin: Denies: Rash Neurological: Denies: Headache Hematologic: Denies: Easy bruising, Easy bleeding Allergy: Denies: Uticaria Physical Exam Vital Signs/Narrative: Vital Signs Temp Pulse Resp BP Pulse Ox 03/01/20 18:57 97.4 F L 84 16 147/94 H 100 Inital Vital Signs reviewed: Yes General: Well nourished, Well developed Head: Normocephalic ENT: Moist mucous membranes Neck: Supple Cardiovascular: Regular rate, Regular rhythm Respiratory: No distress, CTA bilaterally Abdomen: Soft, Nontender, Normal bowel sounds Skin: Normal color Neurological: Alert, Oriented x3 Psychological: Normal affect Diagnostic/Tx/Re-eval Impressions Obstetrics Ultrasound 03/01/20 19:15 IMPRESSION: Single intrauterine with an estimated gestational age of 12 weeks and 2 days. Large subchorionic hemorrhage. Electronically Signed: Sue Brar MD at 21:58 EDT Tel , Service support , 03/01/20 19:15 Transvaginal w/Preg US [US] Stat Laboratory Results 03/01/20 03/01/20 03/01/20 19:20 19:35 19:35 WBC 9.5 RBC 3.77 L Hgb 11.5 L Hct 34.5 L MCV 91.5 MCH 30.5 MCHC 33.3 RDW Std Deviation 44.6 H RDW Coeff of Mack 13.5 Plt Count 265 MPV 10.0 Immature Gran % (Auto) 0.400 Neut % (Auto) 70.4 H Lymph % (Auto) 22.3 [place] % (Auto) 4.9 Eos % (Auto) 1.6 Baso % (Auto) 0.4 Absolute Neuts (auto) 6.7 Absolute Lymphs (auto) 2.11 Nucleated RBC % 0 Sodium 137 Potassium 3.6 Chloride 106 Carbon Dioxide 25.0 Anion Gap 6 BUN 9 Creatinine 0.66 Estim Creat Clear Calc 105.67 Est GFR (MDRD) Af Amer 133 Est GFR (MDRD) Non-Af 110 BUN/Creatinine Ratio 13.6 Glucose 79 Calcium 8.4 L Urine Color Yellow Urine Clarity Sl. Cloudy Urine pH 7.0 Ur Specific [place] 1.010 Urine Protein Negative Urine Glucose (UA) Normal Urine Ketones 15 H Urine Occult Blood 250 H Urine Nitrite Negative Urine Bilirubin Negative Urine Urobilinogen Normal Ur Leukocyte Esterase Negative Urine RBC 0-5 SEEN Urine WBC 0 SEEN Ur Squamous Epith Cells 0-5 SEEN Ur Transition Epith Cell 0 SEEN Amorphous Sediment 1+ Urine Bacteria 0 SEEN Urine Mucus 0 SEEN - Medical Decision Making Patient was given IV fluids and with a dose of morphine for increased cramping. Repeat evaluation she is resting comfortably. Subchorionic hemorrhage is measured on tonight's ultrasound, however was not measured on last week's ultrasound time unsure if this is changed in size. I did see Dr. Williamson. She advised the patient does need to take it easy and follow-up this week as scheduled. Patient and were updated on current findings and are in agreement with the plan. ED Disposition - Plan for ED Patient: Disposition: Home or Assisted Living Diagnosis: Pelvic pain affecting , Subchorionic hemorrhage Instructions: : Your First Trimester Changes Referrals: Miriam Fonseca MD [STAFF PHYSICIAN] - Keep Adina appointment Additional Instructions: Your ultrasound tonight shows a large subchorionic bleed. Your labs and urine are normal. Follow-up with your ObGyn this week as scheduled.
[2020-03-01 19:26] LABS: Bacteria 0 SEEN /hpf (None Seen); Mucous, Urine 0 SEEN /hpf (<or=2+); White Blood Cells 0 SEEN /hpf (0-5)
[2020-03-01] MEDS: 0.9% Normal Saline 1,000 ML 1000 ML IV (19:36)
[2020-03-01 19:43] LABS: Absolute Lymphocyte Count 2.11 X10^3/uL (0.83-4.51); Absolute Neutrophil Count 6.7 X10^3/uL (2.0-7.7); Basophil# 0.04 X10^3/uL; Basophil% 0.4 % (0-1); Eosinophil# 0.15 X10^3/uL; Eosinophils% 1.6 % (0-5); Hematocrit 34.5 % (37-47); Hemoglobin 11.5 g/dL (12.0-15.0); Lymphocyte # 2.11 X10^3/ul (4.0); Lymphocyte % 22.3 % (19-41); Mean Corp Hgb Conc 33.3 g/dL (32-36); Mean Corpuscular Hgb 30.5 pg (27.0-32.0); Mean Corpuscular Volume 91.5 fL (81-99); Monocyte# 0.46 X10^3/uL; Monocyte% 4.9 % (0-10); NRBC Flagged by Analyzer 0 % (0-5); Neutrophil # 6.65 X10^3/uL (2.7-7.7); Neutrophil % 70.4 % (47-70); Platelet Count 265 K/mm3 (150-450); RBC Distribution Width CV 13.5 % (11.6-14.6); RBC Distribution Width SD 44.6 fl (35.1-43.9); Red Blood Count 3.77 M/mm3 (4.2-5.4); White Blood Count 9.5 K/mm3 (4.4-11.0)
[2020-03-01 19:44] LABS: Color, Urine Yellow (Yellow); Glucose, Dipstick Normal (Normal); Ketone-Dipstick 15 mg/dl (Negative); Leukocyte Esterase-Dipstick Negative /ul (Negative); Nitrite-Dipstick Negative (Negative); Occult Blood-Urine 250 /ul (Negative); Protein-Dipstick Negative (Negative); Urine Bilirubin Dipstick Negative (Negative); Urine Clarity Sl. Cloudy (Clear); Urine Urobilinogen Normal (Normal)
[2020-03-01 20:03] LABS: Anion Gap 6 (5-15); BUN 9 mg/dL (7-18); BUN/Creat Ratio 13.6 RATIO (10-20); Calcium,Total 8.4 mg/dL (8.5-10.1); Chloride 106 mmol/L (98-107); Creatinine, Serum 0.66 mg/dL (0.55-1.02); EST Glomerular Filtration Rate 110 mL/min (>60); Est Glom Filt Rate - Afr Amer 133 mL/min (>60); Estimated Creatinine Clearance 105.67 ml/min; Glucose 79 mg/dL (74-106); Potassium 3.6 mmol/L (3.5-5.1); Sodium Level 137 mmol/L (136-145)
[2020-03-01 20:18] LABS: Amorphous Sediment 1+; Red Blood Cells-Urine 0-5 SEEN /hpf (0-5)
[2020-03-01 20:19] LABS: Squamous Epithelial Cells - UA 0-5 SEEN /hpf (5-10); Transitional Epithelial - Ur 0 SEEN /hpf (0-5)
[2020-03-01] MEDS: Morphine 4 MG/ML Syringe IV (20:21)
[2020-03-01] MEDS: Ondansetron 4 MG/2 ML Vial IV (20:21)
[2020-03-01 21:20] VITALS: RESP 16
[2020-03-01 22:43] VITALS: RESP 16
== END 2020-03-01 22:44 | disposition home or self-care (01) ==
PROVIDERS: Emergency Provider Emergency Medicine
DX: O26.891 Other specified pregnancy related conditions, first trimester (principal); R10.2 Pelvic and perineal pain; O20.8 Other hemorrhage in early pregnancy; Z3A.12 12 weeks gestation of pregnancy
CPT/HCPCS: 76817; 80048; 81001; 85025; 96361; 96374; 96375; 99281; 99284; J7030; J2405

== ENCOUNTER → 2020-06-26 09:09 | Outpatient (CLI) | payer BC, SELFPAY ==
[2020-06-26 08:52] VITALS: BMI 31.6
[2020-06-26 09:47] LABS: Absolute Lymphocyte Count 1.14 X10^3/uL (0.83-4.51); Absolute Neutrophil Count 5.5 X10^3/uL (2.0-7.7); Basophil# 0.04 X10^3/uL; Basophil% 0.5 % (0-1); Eosinophil# 0.15 X10^3/uL; Eosinophils% 2.1 % (0-5); Hematocrit 33.1 % (37-47); Hemoglobin 10.5 g/dL (12.0-15.0); Lymphocyte # 1.14 X10^3/ul (4.0); Lymphocyte % 15.6 % (19-41); Mean Corp Hgb Conc 31.7 g/dL (32-36); Mean Corpuscular Hgb 28.8 pg (27.0-32.0); Mean Corpuscular Volume 90.9 fL (81-99); Mean Platelet Vol. 10.5 fl (6.2-12.0); Monocyte# 0.43 X10^3/uL; Monocyte% 5.9 % (0-10); NRBC Flagged by Analyzer 0 % (0-5); Neutrophil # 5.47 X10^3/uL (2.7-7.7); Neutrophil % 74.8 % (47-70); Platelet Count 258 K/mm3 (150-450); RBC Distribution Width CV 12.8 % (11.6-14.6); RBC Distribution Width SD 41.9 fl (35.1-43.9); Red Blood Count 3.64 M/mm3 (4.2-5.4); White Blood Count 7.3 K/mm3 (4.4-11.0)
[2020-06-26 10:10] LABS: Glucose Challenge Gest 1H 50g 78 mg/dL (70-140)
== END ==
PROVIDERS: Referring Provider Nurse Practitioner Women's Health; Visit Provider Nurse Practitioner Women's Health
DX: Z34.80 Encounter for supervision of other normal pregnancy, unspecified trimester (principal); Z13.1 Encounter for screening for diabetes mellitus
CPT/HCPCS: 36415; 82950; 85025; 86850; 86900; 86901

== ENCOUNTER → 2020-07-25 09:08 | Outpatient (CLI) | payer BC, SELFPAY ==
[2020-07-25 08:46] VITALS: BMI 32.5
[2020-07-25 09:47] LABS: Absolute Lymphocyte Count 1.06 X10^3/uL (0.83-4.51); Absolute Neutrophil Count 5.8 X10^3/uL (2.0-7.7); Basophil# 0.05 X10^3/uL; Basophil% 0.6 % (0-1); Eosinophil# 0.24 X10^3/uL; Eosinophils% 3.1 % (0-5); Hematocrit 35.3 % (37-47); Hemoglobin 11.4 g/dL (12.0-15.0); Lymphocyte # 1.06 X10^3/ul (4.0); Lymphocyte % 13.7 % (19-41); Mean Corp Hgb Conc 32.3 g/dL (32-36); Mean Corpuscular Hgb 30.5 pg (27.0-32.0); Mean Corpuscular Volume 94.4 fL (81-99); Mean Platelet Vol. 10.7 fl (6.2-12.0); Monocyte# 0.47 X10^3/uL; Monocyte% 6.1 % (0-10); NRBC Flagged by Analyzer 0 % (0-5); Neutrophil # 5.82 X10^3/uL (2.7-7.7); Neutrophil % 75.3 % (47-70); Platelet Count 220 K/mm3 (150-450); RBC Distribution Width CV 15.1 % (11.6-14.6); RBC Distribution Width SD 51.9 fl (35.1-43.9); Red Blood Count 3.74 M/mm3 (4.2-5.4); White Blood Count 7.7 K/mm3 (4.4-11.0)
== END ==
PROVIDERS: Referring Provider Obstetrics & Gynecology; Visit Provider Obstetrics & Gynecology
DX: D50.9 Iron deficiency anemia, unspecified (principal)
CPT/HCPCS: 36415; 85025

== ENCOUNTER → 2020-08-22 07:34 | Outpatient (CLI) | payer BC, SELFPAY ==
[2020-07-25 08:46] VITALS: BMI 32.5
[2020-08-07 09:01] VITALS: BMI 32.8
--- NOTE | 2020-08-22 07:57 | US_ITS ---
STUDY: SECOND AND THIRD TRIMESTER OBSTETRICAL ULTRASOUND - LIMITED REASON FOR EXAM: Female, 35 years old growth LMP: 12/13/2019 PRIOR ULTRASOUND: 03/01/2020 TECHNIQUE: Transabdominal TECHNICAL QUALITY: Adequate. FINDINGS: There is a single intrauterine fetus. The fetus is in a cephalic presentation. There is demonstrated cardiac activity with a heart rate of 131 bpm. There is a normal amniotic fluid volume. The largest amniotic fluid pocket measures 5.1 cm. The amniotic fluid index (THEODORE) is 13.9 cm. The placenta is fundal in location. There are Grade 1 placental changes. The cervix measures cm in length. BIOMETRY: BPD: 8.9 cm: 35 weeks, 6 days HC: 32.6 cm: 36 weeks, 6 days AC: 32.8 cm: 36 weeks, 5 days FL: 6.8 cm: 34 weeks, 6 days Age by LMP: 36 weeks, 1 days. VIVIAN by LMP: 09/18/2020. age by current US: 36 weeks, 2 days. VIVIAN by current US: 09/17/2020. Estimated weight: 2895 grams, +/- 434 grams, 55 percentile. Gender: US/OB Limited With Biometrics IMPRESSION: Living intrauterine of 36 weeks 2 days as described above. Electronically Signed: Thom Lora MD at 13:03 EDT Tel , Service support ,
== END ==
PROVIDERS: Referring Provider Obstetrics & Gynecology; Visit Provider Obstetrics & Gynecology
DX: O09.293 Supervision of pregnancy with other poor reproductive or obstetric history, third trimester (principal); Z3A.36 36 weeks gestation of pregnancy
CPT/HCPCS: 76816; 87081

== ENCOUNTER 2020-09-03 16:10 | Outpatient (CLI) | payer BC, SELFPAY ==
[2020-08-28 09:09] VITALS: BMI 32.9
[2020-09-03 16:21] VITALS: BP 118/73; PULSE 94
[2020-09-03 16:28] VITALS: BMI 33.1
[2020-09-03 16:59] VITALS: TEMP 37.2
[2020-09-03 17:22] LABS: ROM Internal Control Test YES-OK TO RESULT pt. (Internal QC); ROM Patient Test Negative (Negative)
[2020-09-03 17:37] VITALS: BP 111/72; PULSE 87
--- NOTE | 2020-09-04 08:41 | OB.TRI.PN ---
Progress Notes Date of Service: 09/03/20 Progress Note: Patient presents for triage evaluation secondary to leakage of fluid. ROM negative. Cervix closed FHT: Moderate variability reactive no decelerations category I tracing [place]: Irregular Contractions Assessment and plan: Reactive NST, reassuring maternal and status patient discharged to home to follow-up at next scheduled visit. See problem list details for additional plan information. Laboratory Studies: Laboratory Tests 09/03/20 Range/Units 16:30 Vag Amniotic Fld Detect Negative (Negative) Multi Select Codes - Urinary/Genital Urinary/Genital CPT Codes: 97990-16 non-stress test Interp
== END 2020-09-03 17:50 | disposition home or self-care (01) ==
LOC: WPOUT 16:16 → WP 16:18
PROVIDERS: Visit Provider Obstetrics & Gynecology
DX: O62.9 Abnormality of forces of labor, unspecified (principal); Z3A.00 Weeks of gestation of pregnancy not specified
CPT/HCPCS: 59025; 59050; 84112; 99218; G0378

== ENCOUNTER → 2020-09-19 15:18 | Outpatient (CLI) | payer BC, SELFPAY ==
[2020-08-07 09:01] VITALS: BMI 32.8
[2020-09-19 14:09] VITALS: BMI 33.1
== END ==
PROVIDERS: Visit Provider Obstetrics & Gynecology
DX: Z34.93 Encounter for supervision of normal pregnancy, unspecified, third trimester (principal); Z3A.35 35 weeks gestation of pregnancy
CPT/HCPCS: 87635; C9803; U0002

== ENCOUNTER 2020-09-25 05:05 | Inpatient (IN) | payer BC, SELFPAY ==
[2020-08-22 09:13] VITALS: BMI 32.9
[2020-09-19 14:09] VITALS: BMI 33.1
[2020-09-25] VITALS (15 sets, daily range): BP systolic 92–114; BP diastolic 56–72; PULSE 58–82; RESP 14–16; TEMP 35.6–36.6; O2SAT 96–100; BMI 33.4
[2020-09-25] MEDS: Lactated Ringers 1,000 ML 999 ML IV ×2 (05:45→07:00)
[2020-09-25 06:07] LABS: Absolute Lymphocyte Count 1.52 X10^3/uL (0.83-4.51); Absolute Neutrophil Count 6.5 X10^3/uL (2.0-7.7); Basophil# 0.06 X10^3/uL; Basophil% 0.7 % (0-1); Eosinophil# 0.26 X10^3/uL; Eosinophils% 2.9 % (0-5); Hemoglobin 11.7 g/dL (12.0-15.0); Lymphocyte # 1.52 X10^3/ul (0.83-4.51); Lymphocyte % 17.1 % (19-41); Mean Corp Hgb Conc 32.5 g/dL (32-36); Mean Corpuscular Hgb 30.6 pg (27.0-32.0); Mean Corpuscular Volume 94.2 fL (81-99); Mean Platelet Vol. 11.1 fl (6.2-12.0); Monocyte# 0.45 X10^3/uL; Monocyte% 5.1 % (0-10); NRBC Flagged by Analyzer 0 % (0-5); Neutrophil # 6.46 X10^3/uL (2.7-7.7); Neutrophil % 72.6 % (47-70); Platelet Count 201 K/mm3 (150-450); RBC Distribution Width CV 13.9 % (11.6-14.6); RBC Distribution Width SD 47.9 fl (35.1-43.9); Red Blood Count 3.82 M/mm3 (4.2-5.4); White Blood Count 8.9 K/mm3 (4.4-11.0)
[2020-09-25] MEDS: Acetaminophen 500 MG Tablet 1000 MG PO ×4 (06:07→23:53)
[2020-09-25] MEDS: Lactated Ringers 1,000 ML 150 ML IV (06:51)
[2020-09-25] MEDS: Sodium Citrate/Citric Acid 30 ML UDC PO (07:49)
--- NOTE | 2020-09-25 07:50 | HP.PCM.OB_ITS ---
HPI - General General Date of Admission: 09/25/20 HPI Narrative MAXIMO MARTINEZ, is a 35 F who presents for repeat . [facility] Medical History (Updated 09/25/20 @ 07:[address] Melody Ordaz MD) Abnormal Pap smear of cervix Oligohydramnios Home Medications vitamin #56-iron 35 mg and 5 mg-folic acid 1 mg-dha capsule 1 cap PO DAILY 06/13/20 [History Last Taken Unknown] ferrous sulfate 325 mg PO DAILY 09/25/20 [History Last Taken Unknown] Allergy/AdvReac Type Severity Reaction Status Date / Time amoxicillin Allergy Mild rash Verified 09/19/20 14:08 Penicillins Allergy Mild unknown Verified 09/19/20 14:08 Surgical History (Updated 09/25/20 @ 07:[address] Melody Ordaz MD) History of colposcopy S/P Social History Smoking Status: Never smoker alcohol intake: never substance use type: does not use caffeine: Yes what type of physical activity do you participate in: walking frequency: 3-4 times per week seatbelt use: always do you feel safe at home: Yes additional social history: Lpaxpfh-Uoyq-[id number] Patient is a teacher History 3 Elective abortions Hx Para 2 Spontaneous abortions Hx # Term Pregnancies Ectopic pregnancies Hx # Pregnancies Multiple births # of living children 2 Past Pregnancies Del. Date Name GA/Weeks Outcome Route Bth Weight [facility]16 [place] 40 live - full term 7lbs 9oz Female spinal [facility] Dr. Dionna Kwon 09/01/18 [place] 39 live - full term 9lbs 6oz Female spinal [facility] Elvis Delivery Date: 11/12/16 failed induction then came back in another day and was induced, questionable adequate trial of pushing. Melody Ordaz Delivery Date: 09/01/18 [place] Leidy Laughlin Visit Details Expected Delivery Route/Plan TOLAC if spontaneous labor, if not plan RLTCS with , recommend at 41 weeks - scheduled 09/25 at 0730 patient counseled regarding risks/benefits of trial of labor versus repeat . ACOG/uptodate education given to patient. 50 % likelihood of success per calculator TOLAC consent form signed: 07/10 Labor Preferences- labor support person: elvis labor intervention preferences: open pain management options preferred: open to epidural cut cord/dad catch: yes : yes PP control planned: discussed possible routes of delivery and associated risks: [] special requests: [] Plans flu vaccine: declined tdap vaccine: given rhogam: given LARC form signed: declined movement and labor precautions reviewed. Problem list reviewed and updated with the most current plan of care details and appropriate orders placed. Relevant counseling for the gestational age provided. Continue routine care and follow up unless otherwise noted in visit notes/problem list details OB Flowsheet Initial Weight: Not Recorded Date -?-?-?-?-?-?-?-?-?-?-?-?- EGA Weight BP Urine Prot -?-?-?-?-?-?-?-?-?-?-?-?- Glucose FHR FuHt Pres Dilation -?-?-?-?-?-?-?-?-?-?-?-?- Effaced St Visit Note 02/20/20 -?-?-?-?-?-?-?-?-?-?-?-?- 9w 6d 167 lb 116/72 -?-?-?-?-?-?-?-?-?-?-?-?- 170 -?-?-?-?-?-?-?-?-?-?-?-?- GP - CRL consist ent with LMP. GP - CRL consistent with LMP at US for bleeding. Minimal bleeding since last visit. 03/04/20 -?-?-?-?-?-?-?-?-?-?-?-?- 11w 5d 168 lb 2 oz 130/72 Nega tive -?-?-?-?-?-?-?-?-?-?-?-?- Negative 160 -?-?-?-?-?-?-?-?-?-?-?-?- GP - Still kacy brian minimal bleeding. Evaluated in ER on Tuesday for episode of severe cramping and US normal aside from BECCA. Repeat US today shows area more consistent with incomplete fusion of the chorion and amnion. Otherwise reassurance. Discussed could be associated with increased genetic abnormalities. Declines genetic testing. 03/17/20 -?-?-?-?-?-?-?-?-?-?-?-?- 13w 4d 170 lb 122/70 Negative -?-?-?-?-?-?-?-?-?-?-?-?- Negative 140 -?-?-?-?-?-?-?-?-?-?-?-?- GP - minimal spo tting. No cramping or heavy bleeding. US normal today. 04/16/20 -?-?-?-?-?-?-?-?-?-?-?-?- 17w 6d 176 lb 4 oz 130/82 Nega tive -?-?-?-?-?-?-?-?-?-?-?-?- Negative 135 -?-?-?-?-?-?-?-?-?-?-?-?- GP - no cramping or bleeding. +FM. Anatomy scan scheduled for next week. Plan solomon on surprise gender! 05/20/20 -?-?-?-?-?-?-?-?-?-?-?-?- 22w 5d 181 lb 116/84 Negative -?-?-?-?-?-?-?-?-?-?-?-?- Negative 135 22 -?-?--?-?-?-?-?-?-?-?-?-?- GP - no LOF, VB, DFM, ctx. Anatomy scan normal. GCT next visit. Will need to do rhogam at 28w. 06/13/20 -?-?-?-?-?-?-?-?-?-?-?-?- 26w 1d 182 lb 130/86 Negative -?-?-?-?-?-?-?-?-?-?-?-?- Negative 140 26 -?-?-?-?-?-?-?-?-?-?-?-?- SM- no vb lof go od fm no regular ctx 06/26/20 -?--?-?-?-?-?-?-?-?-?-?-?- 28w 0d 184 lb 100/64 Negative -?-?-?-?-?-?-?-?-?-?-?-?- Negative 146 28 -?-?-?-?-?-?-?-?-?-?-?-?- MH-Good FM. NO V B, LOF. Tdap, 28 wk labs, LARC, rhogam. 07/10/20 -?-?-?-?-?-?-?-?-?-?-?-?- 30w 0d 188 lb 120/78 Negative -?-?-?-?-?-?-?-?-?-?-?-?- Negative 140 30 -?-?-?-?-?-?-?-?-?-?-?-?- SM- no vb lof go od fm no regualr ctx tolac consent signed 07/25/20 -?-?-?-?-?-?-?-?-?-?-?-?- 32w 1d 190 lb 120/70 Negative -?-?-?-?-?-?-?-?-?-?-?-?- Negative 135 32 -?-?-?-?-?-?-?-?-?-?-?-?- SM- no vb lof go od fm no regular ctx 08/07/20 -?-?-?-?-?-?-?-?-?-?-?-?- 34w 0d 191 lb 4 oz 118/70 Nega tive -?-?-?-?-?-?-?-?-?-?-?-?- Negative 120 34 Cephalic -?-?-?-?-?-?-?-?-?-?-?-?- GP - no LOF, VB, DFM, ctx. Denies complaints. Has parent-teacher conferences today. 08/22/20 -?-?-?-?-?-?-?-?-?-?-?-?- 36w 1d 192 lb 124/88 Negative -?-?-?-?-?-?-?-?-?-?-?-?- Negative -?-?-?-?-?-?-?-?-?-?-?-?- 08/28/20 -?-?-?-?-?-?-?-?-?-?-?-?- 37w 0d 192 lb 132/80 -?-?-?-?-?-?-?-?-?-?-?-?- 130 37 Cephalic 0 -?-?-?-?-?-?-?-?-?-?-?-?- 50 -3 GP - no LO F, VB, DFM, ctx. Denies complaints. 09/05/20 -?-?-?-?-?-?-?-?-?-?-?-?- 38w 1d 193 lb 122/68 Negative -?-?-?-?-?-?-?-?-?-?-?-?- Negative 135 38 Cephalic -?-?-?-?-?-?-?-?-?-?-?-?- GP - no LOF, VB, DFM, ctx. Seen in triage for r/o ROM this week - ROM negative at that time. 09/12/20 -?-?-?-?-?-?-?-?-?-?-?-?- 39w 1d 194 lb 112/76 Negative -?-?-?-?-?-?-?-?-?-?-?-?- Negative 130 39 Cephalic 0 -?-?-?-?-?-?-?-?-?-?-?-?- 50 -2 GP - no LO F, VB, DFM, ctx. RLTCS scheduled for 09/2509/19/20 -?-?-?-?-?-?-?-?-?-?-?-?- 40w 1d 195 lb 2 oz 130/88 Nega tive -?-?-?-?-?-?-?-?-?-?-?-?- Negative 130 40 Cephalic 0 -?-?-?-?-?-?-?-?-?-?-?-?- 50 -2 GP - no LO F, VB, DFM, ctx. Cx still closed. RCD next week unless active labor before then. 09/25/20 -?-?-?-?-?-?-?-?-?-?-?-?- 41w 0d 194 lb 10.691 oz -?-?-?-?-?-?-?-?-?-?-?-?- -?-?-?-?-?-?-?-?-?-?-?-?- NST FHR Rate Baby A Baseline: 140 ROS Review of Systems ROS Unobtainable: due to mental status and other Constitutional Constitutional: Reports systems reviewed and no addt'l complaints, except as documented; Denies as per HPI, change in weight, fatigue, fever(s), malaise, weakness or other Eyes Eyes: Reports systems reviewed and no addt'l complaints, except as documented; Denies as per HPI, change in vision or other ENT HEENT: Reports as per HPI; Denies dizziness, dry mouth, headache(s), loss taste/smell, nasal congestion, nasal discharge, neck pain, sore throat or other Respiratory/Chest Respiratory/Chest: Reports systems reviewed and no addt'l complaints, except as documented Gastrointestinal Gastrointestinal: Reports systems reviewed and no addt'l complaints, except as documented; Denies abdominal pain, nausea or vomiting Musculoskeletal Musculoskeletal: Reports systems reviewed and no addt'l complaints, except as documented; Denies back pain or joint pain Integumentary Integumentary: Reports systems reviewed and no addt'l complaints, except as documented Neurologic Neurologic: Reports systems reviewed and no addt'l complaints, except as documented Psychiatric Psychiatric: Reports systems reviewed and no addt'l complaints, except as documented Endocrine Endocrinology: Reports systems reviewed and no addt'l complaints, except as documented Hematologic/Lymphatic Hematologic/Lymphatic: Reports systems reviewed and no addt'l complaints, except as documented Physical Exam Const alert, oriented x3 and no apparent distress HEENT normocephalic Head and Scalp: atraumatic Eyes EOMs intact bilaterally and conjunctivae normal Neck full ROM, no lymphadenopathy, supple and thyroid normal General: trachea midline Lymph Lymphatic: no lymphadenopathy noted Chest inspection of chest normal, palpation of chest normal, inspection of breasts normal and palpation of breasts normal Breast/Axilla Inspection: normal inspection of the axillae Breast/Axilla Palpation: normal palpation of the axillae and no axillary lymphadenopathy Resp normal respiratory effort, no retractions, no use of accessory muscles and clear to auscultation bilaterally Cardio regular rate and regular rhythm GI normal to inspection, nondistended, normoactive bowel sounds, soft to palpation, non-tender, non-distended and no masses external exam normal, appearance of the vagina normal, appearance of the cervix normal, bimanual exam normal, adnexae non-tender and no adnexal masses Back/Spine no CVA tenderness Extremity normal to inspection Skin no rashes or lesions noted Neuro moves all extremities and deep tendon reflexes 2+ bilaterally Motor Exam: clonus absent and clonus present Psych mental status grossly normal Assessment & Plan (1) 35 weeks gestation of : COMMENT: COVID test ordered 08/20/20 (sched 09/05 2:10pm) (2) Abnormal US: COMMENT: Area on US concerning for BECCA more consistent with incomplete fusion of chorion and amnion. Discussed could be associated with increased risk of genetic abnormalities. Declines genetic testing. Plan anatomy US with MFM. Resolved on 03/17. (3) Encounter for prophylactic administration of RhoGAM: COMMENT: 06/26/20 (4) H/O section: COMMENT: x2. First was arrest of dilation, but does not sound like allowed enough time. Second was scheduled RCD - interested in TOLAC if she goes into labor or dilates on her own. RLTCS 09/25 @ 7:30 (5) GBS negative: (6) H/O oligohydramnios in prior , currently : COMMENT: 2019- US @ 36 weeks NL growth PLAN: plan RLTCS discussed with patient and R/B/A for IOL with TOLAC vs RLTCS, proceed with RLTCS.
--- NOTE | 2020-09-25 07:53 | OP.PCM_ITS ---
Assessment & Plan (1) Delivery by section: COMMENT: RLTCS (2) Rh negative status during : QUALIFIERS: Trimester: third trimester Qualified Code(s): O26.893 - Other specified related conditions, third trimester COMMENT: rhogam prn and at 28 weeks given on 06/13/20 Maternal Data Information VIVIAN Calculator Estimated Delivery Date Method Current WG Current Estimate 09/18/20 LMP (Certain) 41w 0d Final VIVIAN Source: LMP Details Operative Information Date of Procedure: 09/25/20 Pre-Operative Diagnosis: Previous Post-Operative Diagnosis: same Indications for : Repeat Elective Classification: Scheduled pipeline operator #1: Melita Martinez Type of Anesthesia: Spinal Special Medications: none Antibiotic Given: Ancef 2 grams IV x1 Drain: La to straight drain Estimated Blood Loss: 600 Fluids Replaced: crystalloid Findings Description of Procedure: Spinal anesthesia was placed without difficulty. La catheter was placed. The patient was placed in the dorsal supine position with leftward tilt. Patient was prepped and draped in the normal sterile fashion. Pfannenstiel skin incision was made with the scalpel and carried through to the underlying layer of fascia with the scalpel. Fascia was nicked in the midline and the incision extended laterally. The rectus bellies were dissected off superiorly and inferiorly with out complication both sharply and bluntly. The peritoneum was entered digitally. The incision was stretched and a low transverse uterine incision was made with the scalpel. The infant's head was delivered atraumatically followed by the anterior and posterior shoulders without complication the rest of the infant delivered. The cord was clamped and cut and the infant was handed off to awaiting nurse. The placenta was delivered spontaneously immediately following and was noted to be intact and have a three- vessel cord. The uterus was exteriorized cleared of all clots and debris, and the incision was closed in a double layer closure using #1 Monocryl. The ovaries and fallopian tubes were noted to be within normal limits. The uterus was returned to the maternal abdomen and gutters were cleared of all clots and debris. The peritoneum was closed with 3-0 Monocryl in a running fashion. Gl oves were changed prior to fascial closure. Fascia was closed with 0 PDS in a running fashion. Subcutaneous tissue was copiously irrigated and the skin was closed with 3-0 Monocryl in a subcuticular fashion. Mepilex dressing was applied without complication. Patient was taken to recovery in stable condition. It was discussed with the patient that based on the clinical information obtained during this encounter, combined with her history, at this time I would recommend cesareans for future deliveries if further pregnancies are desired. Amniotic Membrane Rupture Type: Artificial Amniotic Fluid Description: Clear Placenta Disposition: [facility] Cord Vessel Description: 3 Vessels Cord Entanglement: None Delayed Cord Clamping: Yes Complications Risks of Surgery Discussed w/Patient: Bleeding, Infection, Need for Future C- Sections and Injury to surrounding structure(s) including bowel and bladder Vaginal Delivery Complication Complications: None Admit VTE Documentation VTE Present on Admission: No VTE Mechan Device Prophylaxis: SCD's Procedures Urinary/Genital [id number]: [id number] Delivery [facility]
--- NOTE | 2020-09-25 08:01 | DS.PCM_ITS ---
Providers Date of Admission: 09/25/20 Primary Care Physician: CORY DREW Reason For Visit: REPEAT C SECTION Diagnosis Discharge Diagnosis (1) Delivery by section: Status: Acute (2) Rh negative status during : Status: Acute Code(s): O09.899 - Supervision of other high risk pregnancies, unspecified trimester; Z67.91 - Unspecified blood type, Rh negative Qualifiers: Trimester: third trimester Qualified Code(s): O26.893 - Other specified related conditions, third trimester Medications at Discharge Home Medications vitamin #56-iron 35 mg and 5 mg-folic acid 1 mg-dha capsule 1 cap PO DAILY 06/13/20 ferrous sulfate 325 mg PO DAILY 09/25/20 naproxen 250 - 500 mg PO Q8H PRN PRN #30 tab 09/25/20 oxycodone-acetaminophen [Percocet] 1 tab PO Q6H PRN 7 Days #20 tab 09/25/20 Hospital Course Summary of Care Provided Hospital Course: patient presented for RLS and had an uncomplicated delivery. Postoperatively patient had return of bowel and bladder function and was ambulating well, tolerating adequate p.o., and was stable for discharge to home on postop day #1. Discharge medications naproxen and Percocet. Follow-up in o ffice in 2 weeks for incision check in 6 weeks for visit. Routine post section diet and activity instructions. ABG / Lab / Microbiology Data Result Diagrams: 09/26/20 04:35 Laboratory: Laboratory Results - last 24 hr 09/25/20 09/25/20 05:45 05:45 WBC 8.9 RBC 3.82 L Hgb 11.7 L Hct 36.0 L MCV 94.2 MCH 30.6 MCHC 32.5 RDW Std Deviation 47.9 H RDW Coeff of Mack 13.9 Plt Count 201 MPV 11.1 Immature Gran % (Auto) 1.600 H Neut % (Auto) 72.6 H Lymph % (Auto) 17.1 L Hettinger % (Auto) 5.1 Eos % (Auto) 2.9 Baso % (Auto) 0.7 Absolute Neuts (auto) 6.5 Absolute Lymphs (auto) 1.52 Nucleated RBC % 0 Blood Type B NEGATIVE Antibody Screen NEGATIVE D/C Instructions Discharge Diet: No restrictions Discharge Activity: May Not Drive (for 2 weeks), May not drive while taking narcotic pain medications., May Shower and May Take a Tub Bath (in 7 days) May shower in (days): 0 May resume sexual activity in: 4-6 weeks Weight Bearing Status: Full weight bearing Call your doctor if your incision/area has: Continuous Slow Oozing, Sudden Increased Bleeding, Increased Pain/ Swelling, Increased Redness and Foul Smelling Discharge Call your doctor if you observe: Fever of 101 or Higher and Using more than one pad per hour (for 2 hours) Suture Line Care: Avoid Pulling/Pushing and Avoid Pinching/Bending Cleanse incision/area with: Soap & Water and Keep Dressing Clean & Dry Please Follow Up With: Melody Ordaz MD When: Call [phone] to make an appointment for an incision check in 1-2 weeks. Meaningful Use Info Meaningful Use Diagnoses (Choose all that apply): None applicable Discharge Plan Admission Admit Date/Time: 09/25/20 05:05 Attending Provider: Melody Ordaz Instructions Patient Instructions: After a Discharge Orders/Prescriptions Prescriptions: New naproxen 250 MG tablet 250 - 500 mg PO Q8H PRN PRN (Reason: MILD PAIN) Qty: 30 RF: 1 oxycodone-acetaminophen [Percocet] 5-325 mg tablet 1 tab PO Q6H PRN (Reason: pain) 7 Days Qty: 20 RF: 0 Continued vitamin #56-iron 35 mg and 5 mg-folic acid 1 mg-dha capsule 35 mg iron-5 mg iron-1 mg capsule 1 cap PO DAILY RF: 0 ferrous sulfate 325 mg (65 mg iron) Tablet 325 mg PO DAILY RF: 0 Referrals / Follow Up: CORY DREW [Other] Disposition Disposition (needs filled in before D/C Order can be placed): Home, self care
[2020-09-25] MEDS: Oxytocin 30 units/NS 500 ml 30 UNITS/500 ML IV.SOLN 167 UNITS IV (09:05)
[2020-09-25] MEDS: Ketorolac 30 MG/ML Syringe IV ×3 (10:15→21:57)
[2020-09-25] MEDS: Lactated Ringers 1,000 ML 100 ML IV (10:29)
[2020-09-25] MEDS: 0.9% Saline Lock 10 ML Syringe IV (21:58)
[2020-09-26 00:08] VITALS: BP 97/58; PULSE 66; RESP 18; TEMP 36.6
[2020-09-26 04:18] VITALS: BP 103/67; PULSE 74; RESP 16; TEMP 36.2
[2020-09-26] MEDS: Ketorolac 30 MG/ML Syringe IV (04:28)
[2020-09-26] MEDS: 0.9% Saline Lock 10 ML Syringe IV (04:29)
[2020-09-26 04:42] LABS: Hematocrit 33.8 % (37-47); Hemoglobin 11.3 g/dL (12.0-15.0); Mean Corp Hgb Conc 33.4 g/dL (32-36); Mean Corpuscular Hgb 31.6 pg (27.0-32.0); Mean Corpuscular Volume 94.4 fL (81-99); Mean Platelet Vol. 10.7 fl (6.2-12.0); Platelet Count 192 K/mm3 (150-450); RBC Distribution Width SD 48.4 fl (35.1-43.9); Red Blood Count 3.58 M/mm3 (4.2-5.4); White Blood Count 9.6 K/mm3 (4.4-11.0)
[2020-09-26] MEDS: Acetaminophen 500 MG Tablet 1000 MG PO ×2 (06:03→12:13)
[2020-09-26 08:44] VITALS: BP 103/59; PULSE 73; RESP 18; TEMP 36.3; O2SAT 99
[2020-09-26] MEDS: Senna/Docusate Sodium 1 Tablet PO (10:40)
[2020-09-26] MEDS: Naproxen 250 MG Tablet 500 MG PO (10:40)
--- NOTE | 2020-09-26 13:01 | PCM.PN.OB ---
Subjective Subjective Patient doing well without complaints. Tolerating PO. Ambulating and voiding without difficulty. feeding well. Denies chest pain, shortness of breath, calf pain/swelling, fevers, chills, lightheadedness. Objective Data Objective Data Vital Signs: Vital Signs Temp Pulse Resp BP Pulse Ox 97.3 F L 73 18 103/59 L 99 09/26/20 08:44 09/26/20 08:44 09/26/20 08:44 09/26/20 08:44 09/26/20 08:44 Oxygen Delivery Method Room Air Weight: 194 lb 10.691 oz Body Mass Index (BMI) 33.4 Intake & Output: Intake and Output for Last 24 Hours 09/24/20 09/25/20 09/26/20 23:59 23:59 23:59 Intake Total 6098.545 / 6098.545 Output Total 1400 / 1400 900 / 900 Balance 4698.545 / 4698.545 -900 / -900 Lab / Micro Data Attestation: I reviewed the patient's lab results. Result Diagrams: 09/26/20 04:35 Labs: Laboratory Results - last 24 hr 09/25/20 09/26/20 12:05 04:35 WBC 9.6 RBC 3.58 L Hgb 11.3 L Hct 33.8 L MCV 94.4 MCH 31.6 MCHC 33.4 RDW Std Deviation 48.4 H RDW Coeff of Mack 14.0 Plt Count 192 MPV 10.7 Screen NEGATIVE Baby's Blood Type B POSITIVE Baby's EDGAR NEGATIVE Physical Exam Const alert, oriented x3 and no apparent distress HEENT normocephalic Head and Scalp: atraumatic Resp normal respiratory effort GI soft to palpation and non-tender GI Narrative: fundus firm below umbilicus C/D/I Assessment & Plan (1) Delivery by section: COMMENT: RLTCS PLAN: s/p LTCS PPD # 1 1. routine post care 2. breast feeding- support given 3.rh negative- give PRN 4. rubella immune (2) Rh negative status during : QUALIFIERS: Trimester: third trimester Qualified Code(s): O26.893 - Other specified related conditions, third trimester COMMENT: rhogam prn and at 28 weeks given on 06/13/20
== END 2020-09-26 13:10 | disposition home or self-care (01) | DRG 788 ==
PROVIDERS: Admitting Provider Obstetrics & Gynecology; Referring Provider Obstetrics & Gynecology; Visit Provider Obstetrics & Gynecology
PROC: 10D00Z1 Extraction of Products of Conception, Low, Open Approach (ICD-10-PCS; CPT 59514; principal; 2020-09-25 07:15)
DX: O34.211 Maternal care for low transverse scar from previous cesarean delivery (principal); O48.0 Post-term pregnancy; O26.893 Other specified pregnancy related conditions, third trimester; Z67.91 Unspecified blood type, Rh negative; Z3A.41 41 weeks gestation of pregnancy; Z37.0 Single live birth
CPT/HCPCS: 85025; 85027; 85461; 86850; 86900; 86901; 90384; 99218; 99251; J7120; A4216; G0378; G0463; J2405; J2790

== ENCOUNTER 2021-05-21 14:00 | Outpatient (CLI) | payer OTHER, SELFPAY ==
[2021-05-21 14:57] LABS: hCG Titer Quant., Serum 269 mIU/mL (1-3)
== END 2021-05-21 23:59 | disposition short-term general hospital (02) ==
LOC: PAVLAB 14:01
PROVIDERS: Referring Provider Obstetrics & Gynecology; Visit Provider Obstetrics & Gynecology
DX: N91.2 Amenorrhea, unspecified (principal)
CPT/HCPCS: 36415; 84702; 86850; 86900; 86901

== ENCOUNTER 2021-05-23 10:00 | Outpatient (CLI) | payer OTHER, SELFPAY ==
[2021-05-23 11:32] LABS: hCG Titer Quant., Serum 57 mIU/mL (1-3)
== END 2021-05-23 23:59 | disposition short-term general hospital (02) ==
PROVIDERS: Referring Provider Obstetrics & Gynecology; Visit Provider Obstetrics & Gynecology
DX: O20.0 Threatened abortion (principal); Z3A.00 Weeks of gestation of pregnancy not specified
CPT/HCPCS: 36415; 84702

== ENCOUNTER 2021-07-01 16:10 | Outpatient (CLI) | payer OTHER, SELFPAY ==
[2021-07-01 18:11] LABS: hCG Titer Quant., Serum 315 mIU/mL (1-3)
== END 2021-07-01 23:59 | disposition home or self-care (01) ==
LOC: LAB 16:12
PROVIDERS: Visit Provider Obstetrics & Gynecology
DX: Z34.90 Encounter for supervision of normal pregnancy, unspecified, unspecified trimester (principal)
CPT/HCPCS: 36415; 84702

== ENCOUNTER 2021-07-03 16:23 | Outpatient (CLI) | payer OTHER, SELFPAY ==
[2021-07-03 18:24] LABS: hCG Titer Quant., Serum 770 mIU/mL (1-3)
== END 2021-07-03 23:59 | disposition home or self-care (01) ==
LOC: LAB 16:25
PROVIDERS: Visit Provider Obstetrics & Gynecology
DX: Z34.90 Encounter for supervision of normal pregnancy, unspecified, unspecified trimester (principal)
CPT/HCPCS: 36415; 84702

== ENCOUNTER 2021-08-11 09:38 | Outpatient (CLI) | payer OTHER, SELFPAY ==
[2021-08-10 10:57] LABS: Amphetamine Urine VISTA NEGATIVE (<1000 ng/mL); Barbiturate Urine VISTA NEGATIVE (< 200 ng/mL); Benzodiazepine Urine VISTA NEGATIVE (< 200 ng/mL); Cocaine Urine VISTA NEGATIVE (< 300 ng/mL); Ecstacy Urine VISTA NEGATIVE (< 500 ng/mL); Methadone Urine VISTA NEGATIVE (< 300 ng/mL); PCP Urine VISTA NEGATIVE (< 25 ng/mL); THC Urine VISTA NEGATIVE (< 50 ng/mL); Vista UDS pH Range 7
[2021-08-11 22:07] LABS: Chlamydia By Nucleic Acid AMP Negative (Negative)
[2021-08-12 14:52] LABS: Gonococcus By Nucleic Acid AMP Negative (Negative)
== END 2021-08-11 23:59 | disposition home or self-care (01) ==
LOC: LABSPEC 09:44
PROVIDERS: Visit Provider Obstetrics & Gynecology
DX: Z34.90 Encounter for supervision of normal pregnancy, unspecified, unspecified trimester (principal)
CPT/HCPCS: 80307; 87086; 87088; 87186; 87491; 87591

== ENCOUNTER → 2021-10-19 | Outpatient (CLI) | payer OTHER, SELFPAY ==
[2021-10-19 11:13] LABS: Absolute Lymphocyte Count 1.43 X10^3/uL (0.83-4.51); Basophil# 0.05 X10^3/uL; Basophil% 0.7 % (0-1); Eosinophil# 0.21 X10^3/uL; Hematocrit 34.9 % (37-47); Hemoglobin 11.8 g/dL (12.0-15.0); Lymphocyte # 1.43 X10^3/ul (0.83-4.51); Lymphocyte % 20.1 % (19-41); Mean Corp Hgb Conc 33.8 g/dL (32-36); Mean Corpuscular Hgb 32.2 pg (27.0-32.0); Mean Corpuscular Volume 95.1 fL (81-99); Mean Platelet Vol. 10.5 fl (6.2-12.0); Monocyte# 0.39 X10^3/uL; Monocyte% 5.5 % (0-10); NRBC Flagged by Analyzer 0 % (0-5); Neutrophil # 4.97 X10^3/uL (2.7-7.7); Platelet Count 250 K/mm3 (150-450); RBC Distribution Width CV 13.2 % (11.6-14.6); RBC Distribution Width SD 45.9 fl (35.1-43.9); Red Blood Count 3.67 M/mm3 (4.2-5.4); White Blood Count 7.1 K/mm3 (4.4-11.0)
[2021-10-19 12:21] LABS: HIV - WCH Non-Reactive (Nonreactive); Hepatitis B Surface Antigen Non-Reactive (Nonreactive); Hepatitis C Antibody Non-Reactive (Nonreactive); Rubella IgG Reactive (Nonreactive); Syphilis Antibodies Non-reactive
== END | disposition home or self-care (01) ==
LOC: PAVLAB 10:48
PROVIDERS: Referring Provider Obstetrics & Gynecology; Visit Provider Obstetrics & Gynecology
DX: Z34.90 Encounter for supervision of normal pregnancy, unspecified, unspecified trimester (principal)
CPT/HCPCS: 36415; 85025; 86703; 86762; 86780; 86803; 86850; 86900; 86901; 87340

== ENCOUNTER → 2021-12-10 | Outpatient (CLI) | payer OTHER, SELFPAY ==
[2021-12-10 11:16] LABS: Absolute Lymphocyte Count 1.51 X10^3/uL (0.83-4.51); Absolute Neutrophil Count 4.7 X10^3/uL (2.0-7.7); Basophil# 0.04 X10^3/uL; Basophil% 0.6 % (0-1); Eosinophil# 0.23 X10^3/uL; Eosinophils% 3.2 % (0-5); Hematocrit 33.2 % (37-47); Hemoglobin 11.4 g/dL (12.0-15.0); Lymphocyte # 1.51 X10^3/ul (0.83-4.51); Lymphocyte % 21.3 % (19-41); Mean Corp Hgb Conc 34.3 g/dL (32-36); Mean Corpuscular Hgb 32.2 pg (27.0-32.0); Mean Corpuscular Volume 93.8 fL (81-99); Mean Platelet Vol. 10.5 fl (6.2-12.0); Monocyte# 0.52 X10^3/uL; Monocyte% 7.3 % (0-10); NRBC Flagged by Analyzer 0 % (0-5); Neutrophil # 4.73 X10^3/uL (2.7-7.7); Neutrophil % 66.9 % (47-70); Platelet Count 224 K/mm3 (150-450); RBC Distribution Width CV 12.5 % (11.6-14.6); RBC Distribution Width SD 43.3 fl (35.1-43.9); Red Blood Count 3.54 M/mm3 (4.2-5.4); White Blood Count 7.1 K/mm3 (4.4-11.0)
[2021-12-10 11:41] LABS: Glucose Challenge Gest 1H 50g 102 mg/dL (70-140)
== END | disposition home or self-care (01) ==
LOC: LAB 10:59
PROVIDERS: Referring Provider Nurse Practitioner Women's Health; Visit Provider Nurse Practitioner Women's Health
DX: Z34.90 Encounter for supervision of normal pregnancy, unspecified, unspecified trimester (principal); Z3A.00 Weeks of gestation of pregnancy not specified
CPT/HCPCS: 36415; 82950; 85025; 86850; 86900; 86901

== ENCOUNTER → 2022-02-05 | Outpatient (CLI) | payer OTHER, SELFPAY ==
--- NOTE | 2022-02-05 13:16 | US_ITS ---
STUDY: SECOND AND THIRD TRIMESTER OBSTETRICAL ULTRASOUND REASON FOR EXAM: Female, 36 years old growth LMP: TECHNIQUE: TECHNICAL QUALITY: Adequate. PRIOR ULTRASOUND: None. FINDINGS: There is a single intrauterine fetus. The fetus is in a cephalic presentation. There is demonstrated cardiac activity with a heart rate of 145 bpm. There is a normal amniotic fluid volume. The largest amniotic fluid pocket measures 8.4 cm. The amniotic fluid index (THEODORE) is 23.1 cm. The placenta is anterior in location and is not low lying. There are Grade 2 placental changes. The cervix is not visualized. BIOMETRY: BPD: 9 cm: 36 weeks, 1 days HC: 33.1 cm: 37 weeks, 5 days AC: 32.3 cm: 36 weeks, 2 days FL: 6.7 cm: 34 weeks, 3 days age by current US: 36 weeks, 2 days. VIVIAN by current US: 03/03/2022. Estimated weight: 2795 grams, +/- 419 grams, 45 percentile. CI: 77% FL/BPD: 75% FL/HC: 22.3% FL/AC: 20.7% HC/AC: 1.02 ANATOMY: anatomy is not included on this examination and is not evaluated. US/OB Limited With Biometrics IMPRESSION: Single live intrauterine fetus in cephalic presentation with an estimated gestational age of 36 weeks and 2 days. Polyhydramnios. THEODORE measures 23.1 cm. Electronically Signed: Rafal Kwon MD at 8:41 EDT ,
== END | disposition home or self-care (01) ==
PROVIDERS: Referring Provider Obstetrics & Gynecology; Visit Provider Obstetrics & Gynecology
DX: O40.3XX0 Polyhydramnios, third trimester, not applicable or unspecified (principal); Z3A.36 36 weeks gestation of pregnancy
CPT/HCPCS: 76816

== ENCOUNTER → 2022-02-10 | Outpatient (CLI) | payer OTHER, SELFPAY | END | disposition home or self-care (01) | PROVIDERS: Visit Provider Obstetrics & Gynecology | DX: Z34.80 Encounter for supervision of other normal pregnancy, unspecified trimester (principal) | CPT/HCPCS: 87081 ==

== ENCOUNTER 2022-02-25 09:35 | Inpatient (IN) | payer OTHER, SELFPAY ==
[2022-02-25] VITALS (18 sets, daily range): BP systolic 99–125; BP diastolic 52–85; PULSE 59–87; RESP 12–96; TEMP 35.8–36.6; O2SAT 92–100; BMI 34.9
[2022-02-25] MEDS: Lactated Ringers 1,000 ML 999 ML IV ×2 (10:00→23:00)
[2022-02-25 10:15] LABS: Absolute Lymphocyte Count 1.48 X10^3/uL (0.83-4.51); Absolute Neutrophil Count 5.4 X10^3/uL (2.0-7.7); Basophil# 0.04 X10^3/uL; Basophil% 0.5 % (0-1); Eosinophils% 3.9 % (0-5); Hematocrit 32.8 % (37-47); Hemoglobin 10.9 g/dL (12.0-15.0); Lymphocyte # 1.48 X10^3/ul (0.83-4.51); Lymphocyte % 19.2 % (19-41); Mean Corp Hgb Conc 33.2 g/dL (32-36); Mean Corpuscular Hgb 29.8 pg (27.0-32.0); Mean Corpuscular Volume 89.6 fL (81-99); Mean Platelet Vol. 11.4 fl (6.2-12.0); Monocyte# 0.39 X10^3/uL; Monocyte% 5.1 % (0-10); NRBC Flagged by Analyzer 0 % (0-5); Neutrophil # 5.43 X10^3/uL (2.7-7.7); Neutrophil % 70.3 % (47-70); Platelet Count 261 K/mm3 (150-450); RBC Distribution Width CV 12.7 % (11.6-14.6); RBC Distribution Width SD 41.5 fl (35.1-43.9); Red Blood Count 3.66 M/mm3 (4.2-5.4); White Blood Count 7.7 K/mm3 (4.4-11.0)
[2022-02-25] MEDS: Lactated Ringers 1,000 ML 150 ML IV (10:56)
[2022-02-25] MEDS: Acetaminophen 500 MG Tablet 1000 MG PO ×2 (12:18→18:20)
[2022-02-25] MEDS: Sodium Citrate/Citric Acid 30 ML UDC PO (12:18)
[2022-02-25] MEDS: Clindamycin 900 MG/50 ML BAG 75 MG IV (12:43)
--- NOTE | 2022-02-25 12:53 | OP.PCM_ITS ---
Assessment & Plan (1) Rh negative status during : QUALIFIERS: Trimester: third trimester Qualified Code(s): O26.893 - Other specified related conditions, third trimester COMMENT: rhogam prn and at 28 weeks- 12/10 (2) Delivery by section: COMMENT: RLTCS X 3 Plans RLTCS with 02/25 @ 12 (3) : QUALIFIERS: Weeks of gestation: 38 weeks Qualified Code(s): Z3A.38 - 38 weeks gestation of COMMENT: GBS neg. anatomy nl, Declines genetic screens (4) History of tetanus, diphtheria, and acellular pertussis booster vaccination (Tdap): (5) Polyhydramnios affecting : COMMENT: Borderline THEODORE 23.1 (6) Supervision of other normal : COMMENT: PRR VIVIAN 03/04/22 surprise PC: Sharona Izaguirre Morgan(boy) Spouse: Doyle (7) H/O oligohydramnios in prior , currently : COMMENT: US @ 36 weeks growth (8) delivery delivered: COMMENT: RLTCS 39 Maternal Data Information VIVIAN Calculator Estimated Delivery Date Method Current WG Current Estimate 03/04/22 Ultrasound #1 39w 0d Other Estimates 03/23/22 LMP (Uncertain) 36w 2d Final VIVIAN Source: LMP Details Operative Information Date of Procedure: 02/25/22 Pre-Operative Diagnosis: Previous Post-Operative Diagnosis: same Indications for : Repeat Elective Classification: Scheduled Type of Anesthesia: Spinal Special Medications: none Antibiotic Given: Ancef 2 grams IV x1 Drain: La to straight drain Estimated Blood Loss: 800 Fluids Replaced: crystalloid Findings Description of Procedure: Spinal anesthesia was placed without difficulty. La catheter was placed. The patient was placed in the dorsal supine position with leftward tilt. Patient was prepped and draped in the normal sterile fashion. Pfannenstiel skin incision was made with the scalpel and carried through to the underlying layer of fascia with the scalpel. Fascia was nicked in the midline and the incision extended laterally. The rectus bellies were dissected off superiorly and inferiorly with out complication both sharply and bluntly. The peritoneum was entered digitally. The incision was stretched and a low transverse uterine incision was made with the scalpel. The 's head was delivered atraumatically followed by the anterior and posterior shoulders without complication the rest of the delivered. The cord was clamped and cut and the was handed off to awaiting nurse. The placenta was delivered spontaneously immediately following and was noted to be intact and have a three- vessel cord. The uterus was exteriorized cleared of all clots and debris, and the incision was closed in a double layer closure using #1 Monocryl. The ovaries and fallopian tubes were noted to be within normal limits. The uterus was returned to the maternal abdomen and gutters were cleared of all clots and debris. The peritoneum was closed with 3-0 Monocryl in a running fashion. Gloves were changed prior to fascial closure. Fascia was closed with 0 PDS in a running fashion. Subcutaneous tissue was copiously irrigated and the skin was closed with 3-0 Monocryl in a subcuticular fashion. Mepilex dressing was applied without complication. Patient was taken to recovery in stable condition. It was discussed with the patient that based on the clinical information obtained during this encounter, combined with her history, at this time I would recommend cesareans for future deliveries if further pregnancies are desired. Amniotic Membrane Rupture Type: Artificial Amniotic Fluid Description: Clear Placenta Disposition: [facility] Cord Vessel Description: 3 Vessels Cord Entanglement: None Delayed Cord Clamping: Yes Complications Risks of Surgery Discussed w/Patient: Bleeding, Infection, Need for Future C- Sections and Injury to surrounding structure(s) including bowel and bladder Vaginal Delivery Complication Complications: None Admit VTE Documentation VTE Present on Admission: No VTE Mechan Device Prophylaxis: SCD's Procedures Urinary/Genital 52xxx-59xxx: [id number] Delivery [facility]
--- NOTE | 2022-02-25 12:54 | HP.PCM_ITS ---
History and Physical MR#: [id number] Acct: [id number] Name:? MAXIMO MARTINEZ Rep #: [id number] : 1985 ? ? Provider: Dr. Melody Ordaz MD Age/Sex:? 36/F ? ? Location: [facility] [place] Status: Signed Intake Vital Signs ? 10/22/2210:48 02/19/2215:23 02/23/2204:45 Height 5 ft 4 in 5 ft 4 in 5 ft 4 in Weight: ? 205 lb ? BMI ? 35.2 35.2 BP ? 139/84 H 139/84 H Intake Visit Reasons:?38WK OB Allergies amoxicillin Allergy (Mild, Verified 02/10/22 15:36) rashPenicillins Allergy (Mild, Verified 02/10/22 15:36) unknown Medications vitamin #56-iron 35 mg and 5 mg-folic acid 1 mg-dha capsule 1 cap PO DAILY 06/13/20 [History Confirmed 02/19/22] Last Menstrual Period: 03/19/21 PFS PFS Medical History? Abnormal Pap smear of cervix H/O oligohydramnios in prior , currently HPV test positive Oligohydramnios Supervision of other normal Surgical History? History of colposcopy S/P Family History? Father CAD (coronary artery disease) Social History? adopted:? No household members:? spouse and children number of children:? 3 current occupational status:? 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 Yes pets and animals: dog(s) Smoking Status:? Never smoker alcohol intake:? never substance use type:? does not use caffeine:? Yes what type of physical activity do you participate in:? walking frequency:? 3-4 times per week seatbelt use:? always do you feel safe at home:? Yes additional social history:? Xhdajkt-Ogew-Itbykfqgg Patient is a teacher History ? ? ? 4 ? Elective abortions ? Hx Para ? ? ? 3 ? Spontaneous abortions ? ? ? 1 Hx # Term Pregnancies ? Ectopic pregnancies ? Hx # Pregnancies ? Multiple births ? # of living children ? ? ? 3 Past Pregnancies Del. Date Name GA/Weeks Outcome Route Bth Weight Gen Labor Lgth Anesthesia Del Locatn Provider FOB 11/12/16 Zina 40 live - full term 7lbs 9oz Female ? [facility] Dr. Dionna Kwon 09/01/18 Sharona 39 live - full term 9lbs 6oz Female ? [facility] SM Doyle 09/25/20 Mayank 39 live - full term C- section ? Male ? [facility] ? Delivery Date: 11/12/16? Last Updated by: Melody Ordaz MD ? ? ? failed induction then came back in another day and was induced, questionable adequate trial of pushing. Delivery Date: 09/01/18? Last Updated by: Leidy Laughlin ? ? ? [place] ? ? ? Delivery Date: 09/25/20? Last Updated by: Jennifer Gracia ACCOUNTING OFFICE MANAGER, ACCOUNTING OFFICE MANAGER-C ? ? ? no issues HPI 38WK OB Details: MAXIMO MARTINEZ is a 36 year old who presents for routine OB visit. OB Visit VIVIAN Calculator ? Estimated Delivery Date Method Current WG Current EstimateD 03/04/22 Ultrasound #1 38w 4d Other Estimates 03/23/22 LMP (Uncertain) 35w 6d Expected Delivery Route/Plan RLTCS Specific Issue/Plans Covid status: discussed Flu vaccine: discussed Tdap vaccine: given Rhogam: na LARC form signed: [] movement and labor precautions reviewed. Problem list reviewed and updated with the most current plan of care details and appropriate orders placed.? Relevant counseling for the gestational age provided. Continue routine care and follow up unless otherwise noted in visit notes/problem list details Initial Weight:?170 lb Date -?-?-?-?-?-?-?-?-?-?-?-?- EGA Weight BP Urine Prot -?-?-?-?-?-?-?-?-?-?-?-?- Glucose FHR FuHt Pres Dilation -?-?-?-?-?-?-?-?-?-?-?-?- Effaced St Visit Note 08/10/21-?-?-?-?-?-?-?-?-?-?-?-?- 10w 4d 170 lb(+0 oz) 106/64 -?-?-?-?-?-?-?-?-?-?-?-?- ? 160 ? ? -?-?-?-?-?-?-?-?-?-?-?-?- ? ? SM- CRL 3.26cm determining VIVIAN 03/04/22 08/26/21-?-?-?-?-?-?-?-?-?-?-?-?- 12w 6d 174 lb 8 oz(+4 lb 8 oz) 112/80 Negative -?-?-?-?-?-?-?-?-?-?-?-?- Negative 154 ? ? -?-?-?-?-?-?-?-?-?-?-?-?- ? ? JV- no cramping or bleeding. bedside scan performed for heart tones. adequate growth since last visit. [facility] ultrasound order placed 09/24/21-?-?-?-?-?-?-?-?-?-?-?-?- 17w 0d 177 lb 6 oz(+7 lb 6 oz) 118/60 Negative -?-?-?-?-?-?-?-?-?-?-?-?- Negative 160 ? ? -?-?-?-?-?-?-?-?-?-?-?-?- ? ? MH-No VB, LOF. Bedside US confirm FHT 10/22/21-?-?-?-?-?-?-?-?-?-?-?-?- 21w 0d 183 lb 4 oz(+13 lb 4 oz) 110/80 Negative -?-?-?-?-?-?-?-?-?-?-?-?- Negative 130 ? ? -?-?-?-?-?-?-?-?-?-?-?-?- ? ? JV- no lof, vaginal bleeding, or dec fm. Anatomy scan done today results pending. 11/18/21-?-?-?-?-?-?-?-?-?-?-?-?- 24w 6d 189 lb 6 oz(+19 lb 6 oz) 116/70 Negative -?-?-?-?-?-?-?-?-?-?-?-?- Negative 148 ? ? -?-?-?-?-?-?-?-?-?-?-?-?- ? ? MH-No VB, LOF. movement noted, anterior placenta. 12/10/21-?-?-?-?-?-?-?-?-?-?-?-?- 28w 0d 189 lb(+19 lb) 108/64 Negative -?-?-?-?-?-?-?-?-?-?-?-?- Negative 135 ? ? -?-?--?-?-?-?-?-?-?-?-?-?- ? ? JV- normal gct and cbc. tdap and rhogam today. no complaints. 12/25/21-?-?-?-?-?-?-?-?-?-?-?-?- 30w 1d 190 lb 2 oz(+20 lb 2 oz) 118/80 Negative -?-?-?-?-?-?-?-?-?-?-?-?- Negative 130 31 ? -?-?-?-?-?-?-?-?-?-?-?-?- ? ? SM- no vb lof good fm no regular ctx schedule cs 39 01/08/22-?-?-?-?-?-?-?-?-?-?-?-?- 32w 1d 195 lb(+25 lb) 130/82 Negative -?-?-?-?-?-?-?-?-?-?-?-?- Negative 142 ? ? -?-?-?-?-?-?-?-?-?-?-?-?- ? ? JV- no lof, vaginal bleeding, or dec fm. scheduled for cs with SM 01/22/22-?-?-?-?-?-?-?-?-?-?-?-?- 34w 1d 198 lb(+28 lb) 104/60 Negative -?-?-?-?-?-?-?-?-?-?-?-?- Negative 140 34 ? -?-?-?-?-?-?-?-?-?-?-?-?- ? ? SM- no vb lof good fm no regular ctx 02/05/22-?-?-?-?-?-?-?-?-?-?-?-?- 36w 1d 199 lb(+29 lb) 122/76 Negative -?-?-?-?-?-?-?-?-?-?-?-?- Negative 140 36 ? -?-?-?-?-?-?-?-?-?-?-?-?- ? ? SM- no vb lof good fm no regular ctx 02/10/22-?-?-?-?-?-?-?-?-?-?-?-?- 36w 6d 204 lb(+34 lb) 128/81 Negative -?-?-?-?-?-?-?-?-?-?-?-?- Negative 140 37 ? -?-?-?-?-?-?-?-?-?-?-?-?- ? ? LC- no vb, lof, ctx. GBS collected today. 02/19/22-?-?-?-?-?-?-?-?-?-?-?-?- 38w 1d 205 lb(+35 lb) 139/28989/84 Negativ e -?-?-?-?-?-?-?-?-?-?-?-?- Negative 130 ? ? -?-?-?-?-?-?-?-?-?-?-?-?- ? ? SM- no vb lof good fm no regular ctx preop today ACOG First Trimester First Trimester: Desire for , Alcohol, Tobacco Cessation, Illicit/Recreational Drug/Substance Use, Intimate Partner Violence, Barriers to care, Unstable Housing, Communication Barriers, Environmental/Work Hazards, Anticipated Course of Care, Toxoplasmosis Precations, Use of Any medications, Sexual activity, Exercise, Dental Care, Sauna/Hot tub use, Seat Belt use, Childbirth classes/Hospital facilities, Travel, Indications for Ultrasound and Screening for Aneuploidy; Discussed Second Trimester Second Trimester: Signs and Symptoms of Labor, Selecting a care provider, Reproductive Life Planning & Contreception, Care Planning, Depression/Anxiety and Intimate Partner Violence; Discussed Tobacco Cessation Third Trimester Third Trimester: Pain Management Plans, Labor support person(s), Immediate Larc, Movement Monitoring, Signs and Symptoms of Preeclampsia, Labor Signs, Cervical Ripening/Labor Induction Counseling, Postterm Counseling, Education, Family Medical Leave or Disability Forms, Depression, Tobacco Cessation, Depression and Intimate Partner Violence; Discussed Trial of Labor after Counseling and Discussed Circumcision preference Diagnostics Diagnostics Diagnostics: ?? ? Blood Type B NEGATIVE ?? ? Antibody Screen NEGATIVE ?? ? Glucose 1 Hr 50 gm 102 mg/dL (70-140) ?? ? HIV 1&2 Antibody Non-Reactive? (Nonreactive) ?? ? Rubella IgG Antibody Reactive? (Nonreactive) ?? ? Hgb 11.4 g/dL (12.0-15.0)? L ?? ? Hct 33.2 % (37-47)? L Details: HIV: Urine Culture: Sequential Screen: NIPT Screen: ROS Const Reports system reviewed and no additional complaints, except as documented Card Reports system reviewed and no additional complaints, except as documented Resp Reports system reviewed and no additional complaints, except as documented GI Reports system reviewed and no additional complaints, except as documented and Reports nausea Reports system reviewed and no additional complaints, except as documented Musc Reports system reviewed and no additional complaints, except as documented Exam Const General: cooperative, healthy appearing, comfortable and anxious [facility] Head: normal to inspection Nose: external nose normal Face and sinus: normal facial exam Neck Neck: normal visual inspection, full ROM and no lymphadenopathy Thyroid: thyroid normal Chest Chest palpation & inspection: normal inspection of the chest Resp Effort & Inspection: normal respiratory effort GI Inspection: normal to inspection Palpation: soft and other (gravid uterus) Other: infant vertex and appropriate size for gestational age Other: Cervical Exam: Extrem General: pedal edema Office Procedures Non-stress Test Non-Stress Test Indications for Monitoring: Yes Polyhydramnios Heart Rate Baseline: 130 Heart Rate Variability: moderate Movement: Present Heart Rate Accelerations: Present Decelerations: Absent Contractions: Absent Impression: Yes Reactive Non-Stress Test Category 1 Results POC Urinalysis 2 Dip? (Clinic) Office Urine Glucose Negative ? ? Last Edit by Nuria De Jesus on 02/19/22 15:26 Office Urine Protein Negative ? ? Last Edit by Nuria De Jesus on 02/19/22 15:26 Coding Level of Care Code OB Routine Diagnoses Polyhydramnios affecting ? O40.9XX0 Supervision of other normal ? Z34.80 ? Z3A.38 ? ? ? Weeks of gestation: 38 weeks H/O oligohydramnios in prior , currently ? O09.299 Delivery by section? Rh negative status during ? O26.893 ? ? ? Trimester: third trimester CPT Codes Non-Stress Test (27889) Assessment and Plan Assessment and Plan (1) Polyhydramnios affecting : ?Status:?Acute ?Comment: Borderline THEODORE 23.1 (2) Supervision of other normal : ?Status:?Acute ?Comment: PRR VIVIAN 03/04/22 surprise PC: Sharona Izaguirre Morgan(boy) Spouse: Doyle (3) : ?Status:?Acute ?Qualifiers: ?Weeks of gestation:?38 weeks? Qualified Code(s):?Z3A.38 - 38 weeks gestation of ?Comment: GBS neg. anatomy nl, Declines genetic screens (4) H/O oligohydramnios in prior , currently : ?Status:?Acute ?Comment: US @ 36 weeks growth (5) Delivery by section: ?Status:?Acute ?Comment: RLTCS X 3 Plans RLTCS with SM 02/25 @ 12 (6) Rh negative status during : ?Status:?Acute ?Qualifiers: ?Trimester:?third trimester? Qualified Code(s):?O26.893 - Other specified related conditions, third trimester ?Comment: rhogam prn and at 28 weeks- 12/10 ? ? ? Orders: proceed with RLTCS UPDATE- I have seen the patient and performed any clinically relevant updates to the history and physical exam. Melody Ordaz MD .
[2022-02-25] MEDS: Oxytocin 15 Units/NS 250ml 15 UNITS/250 ML IV.SOLN 83 UNITS IV (14:05)
[2022-02-25] MEDS: Ketorolac 30 MG/ML Syringe IV (14:06)
[2022-02-25] MEDS: Methylergonovine 0.2 MG/ML Ampul IM (14:08)
--- NOTE | 2022-02-25 14:18 | DCINST_ITS ---
Discharge Instructions Diet Discharge Diet: No restrictions Activity Discharge Activity: Return to Normal Activity, May Drive (when pain free and off narcotic pain meds), May Shower and May Take a Tub Bath (in 4 weeks) May resume sexual activity in: 6 weeks Weight Bearing Status: Full weight bearing Lifting Restrictions: under 30 lbs for 6 weeks Dressing / Incision Call your doctor if your incision/area has: Continuous Slow Oozing, Sudden Increased Bleeding, Increased Pain/ Swelling, Increased Redness, Foul Smelling Discharge and - Call your doctor if you observe: Fever of 101 or Higher, Using more than 1 pad per hour, Shortness of breath, Chest pain and Uncontrolled pain Suture Line Care: Avoid Pulling/Pushing and Avoid Pinching/Bending Change Dressing in: 1 week (leave open to air after removed) Remove Dressing in: 1 week (if present) Cleanse incision/area with: Soap & Water and Keep Dressing Clean & Dry Follow Up Care Please Follow Up With: Melody Ordaz MD When: Call to make an appointment with your doctor for a postop visit in 2 and 6 weeks. Test Results: Test results from this visit will be discussed in further detail at your follow- up appointment, if applicable. Discharge Plan Admission Admit Date/Time: 02/25/22 09:35 Attending Provider: Melody Ordaz Primary Care Provider: Care Physician,Bernie Primary Discharge Orders/Prescriptions Prescriptions: New oxycodone-acetaminophen [Percocet] 5-325 mg tablet 1 tab PO Q6H PRN (Reason: pain) 7 Days Qty: 20 0RF naproxen [naproxen] 500 mg tablet 500 mg PO BID PRN PRN (Reason: Pain) Qty: 30 1RF No Action vitamin #56-iron 35 mg and 5 mg-folic acid 1 mg-dha capsule 35 mg iron-5 mg iron-1 mg capsule 1 cap PO DAILY Referrals / Follow Up: Care Physician,Bernie Primary [Primary Care Provider] - Disposition Disposition (needs filled in before D/C Order can be placed): Home, Self Care
[2022-02-25] MEDS: Ondansetron 4 MG/2 ML Vial IV ×2 (15:27→20:20)
[2022-02-25] MEDS: 0.9% Saline Lock 10 ML Syringe IV ×2 (17:17→20:23)
[2022-02-26 00:03] VITALS: BP 95/54; PULSE 82; RESP 18; TEMP 36.1; O2SAT 84
[2022-02-26] MEDS: Ketorolac 30 MG/ML Syringe IV ×3 (00:14→12:22)
[2022-02-26] MEDS: Acetaminophen 500 MG Tablet 1000 MG PO ×3 (00:14→12:21)
[2022-02-26] MEDS: 0.9% Saline Lock 10 ML Syringe IV ×3 (00:15→12:22)
[2022-02-26 04:10] VITALS: BP 102/63; PULSE 59; RESP 14; TEMP 36.3; O2SAT 97
[2022-02-26 06:32] LABS: Hematocrit 30.1 % (37-47); Hemoglobin 9.6 g/dL (12.0-15.0); Mean Corp Hgb Conc 31.9 g/dL (32-36); Mean Corpuscular Hgb 28.9 pg (27.0-32.0); Mean Corpuscular Volume 90.7 fL (81-99); Mean Platelet Vol. 10.9 fl (6.2-12.0); Platelet Count 214 K/mm3 (150-450); RBC Distribution Width CV 12.8 % (11.6-14.6); RBC Distribution Width SD 42.2 fl (35.1-43.9); Red Blood Count 3.32 M/mm3 (4.2-5.4); White Blood Count 7.6 K/mm3 (4.4-11.0)
--- NOTE | 2022-02-26 07:38 | PCM.PN.OB ---
Subjective Subjective Patient doing well without complaints. Tolerating PO. Ambulating and voiding without difficulty. feeding well. Denies chest pain, shortness of breath, calf pain/swelling, fevers, chills, lightheadedness. Objective Data Objective Data Vital Signs: Vital Signs Temp Pulse Resp BP Pulse Ox O2 Del Method 97.3 F L 59 L 14 102/63 97 Room Air 02/26/22 04:10 02/26/22 04:10 02/26/22 04:10 02/26/22 04:10 02/26/22 04:10 02/26/22 04:10 Oxygen Delivery Method Room Air Weight: 203 lb 14.841 oz Body Mass Index (BMI) 34.9 Intake & Output: Intake and Output for Last 24 Hours 02/24/22 02/25/22 02/26/22 23:59 23:59 23:59 Intake Total 1507.50 / 1507.50 Output Total 400 / 400 1325 / 1325 Balance 1107.50 / 1107.50 -1325 / -1325 Lab / Micro Data Result Diagrams: 02/26/22 06:26 Labs: Laboratory Results - last 24 hr 02/25/22 09:55: WBC 7.7, RBC 3.66 L, Hgb 10.9 L, Hct 32.8 L, MCV 89.6, MCH 29.8, MCHC 33.2, RDW Std Deviation 41.5, RDW Coeff of Mack 12.7, Plt Count 261, MPV 11.4, Immature Gran % (Auto) 1.000 H, Neut % (Auto) 70.3 H, Lymph % (Auto) 19.2, [place] % (Auto) 5.1, Eos % (Auto) 3.9, Baso % (Auto) 0.5, Absolute Neuts (auto) 5.4, Absolute Lymphs (auto) 1.48, Nucleated RBC % 0 02/25/22 09:55: Blood Type B NEGATIVE, Antibody Screen TNP, Antibody Identification Cancelled 02/25/22 09:55: Antibody Screen NEGATIVE 02/25/22 14:45: Screen NEGATIVE, Baby's Blood Type B POSITIVE, Baby's EDGAR NEGATIVE 02/26/22 06:26: WBC 7.6, RBC 3.32 L, Hgb 9.6 L, Hct 30.1 L, MCV 90.7, MCH 28.9, MCHC 31.9 L, RDW Std Deviation 42.2, RDW Coeff of Mack 12.8, Plt Count 214, MPV 10.9 Micro: Microbiology 02/25/22 09:55 Nasal Secretion SARS-CoV-2 Antigen (Rapid) - Final ROS Constitutional Constitutional: Reports systems reviewed and no addt'l complaints, except as documented Cardiovascular Cardiovascular: Reports systems reviewed and no addt'l complaints, except as documented Respiratory/Chest Respiratory/Chest: Reports systems reviewed and no addt'l complaints, except as documented Gastrointestinal Gastrointestinal: Reports systems reviewed and no addt'l complaints, except as documented Physical Exam Const alert, oriented x3 and no apparent distress HEENT Head and Scalp: atraumatic Resp normal respiratory effort GI soft to palpation and non-tender Inspection: incision intact, healing well and drainage (none) Bimanual Exam - Vag & Uterus: uterus non-tender Uterus Palpation: uterus fundus firm (below Umbilicus) Assessment & Plan (1) delivery delivered: COMMENT: [facility] 39 (2) Rh negative status during : QUALIFIERS: Trimester: third trimester Qualified Code(s): O26.893 - Other specified related conditions, third trimester COMMENT: rhogam prn and at 28 weeks- 12/10 PLAN: Plan s/p LTCS PPD # 1 1. routine post care 2. breast feeding- support given 3. rh negative will give rhogam 4. rubella immune
[2022-02-26 08:16] VITALS: BP 113/68; PULSE 69; RESP 16; TEMP 36.4
[2022-02-26] MEDS: Enoxaparin 40 MG/0.4 ML Syringe SC (10:38)
[2022-02-26] MEDS: Senna/Docusate Sodium 1 Tablet PO (10:38)
[2022-02-26 12:35] VITALS: BP 105/67; PULSE 69; RESP 16; TEMP 36.3
== END 2022-02-26 14:50 | disposition home or self-care (01) | DRG 788 ==
PROVIDERS: Admitting Provider Obstetrics & Gynecology; Visit Provider Obstetrics & Gynecology
PROC: 10D00Z1 Extraction of Products of Conception, Low, Open Approach (ICD-10-PCS; CPT 59514; principal; 2022-02-25 11:45)
DX: O40.3XX0 Polyhydramnios, third trimester, not applicable or unspecified (principal); O26.893 Other specified pregnancy related conditions, third trimester; O34.211 Maternal care for low transverse scar from previous cesarean delivery; Z20.822 Contact with and (suspected) exposure to COVID-19; Z37.0 Single live birth; Z3A.38 38 weeks gestation of pregnancy
CPT/HCPCS: 59025; 59050; 85025; 85027; 85461; 86850; 86900; 86901; 87426; 90384; 99218; J7120; A4216; G0378; J2405; J2790

== ENCOUNTER → 2022-04-15 | Outpatient (CLI) | payer OTHER, SELFPAY ==
[2022-04-22 14:53] LABS: HPV APTIMA, High Risk Negative (Negative)
== END | disposition home or self-care (01) ==
LOC: LABSPEC 11:51
PROVIDERS: Visit Provider Obstetrics & Gynecology
DX: Z12.4 Encounter for screening for malignant neoplasm of cervix (principal)
CPT/HCPCS: 87624; 88175; G0145

== ENCOUNTER → 2023-05-13 | Outpatient (CLI) | payer MEDICAID, SELFPAY ==
[2023-05-17 20:07] LABS: Chlamydia By Nucleic Acid AMP Negative (Negative); Gonococcus By Nucleic Acid AMP Negative (Negative)
== END | disposition home or self-care (01) ==
PROVIDERS: Referring Provider Obstetrics & Gynecology; Visit Provider Obstetrics & Gynecology
DX: Z34.90 Encounter for supervision of normal pregnancy, unspecified, unspecified trimester (principal); Z3A.00 Weeks of gestation of pregnancy not specified
CPT/HCPCS: 87077; 87086; 87088; 87186; 87491; 87591

== ENCOUNTER → 2023-05-18 | Outpatient (CLI) | payer MEDICAID, SELFPAY ==
[2023-05-18 15:21] LABS: Absolute Neutrophil Count 5.5 X10^3/uL (2.0-7.7); Basophil# 0.04 X10^3/uL; Basophil% 0.5 % (0-1); Eosinophil# 0.15 X10^3/uL; Eosinophils% 1.9 % (0-5); Hematocrit 38.6 % (37-47); Hemoglobin 12.5 g/dL (12.0-15.0); Lymphocyte % 19.4 % (19-41); Mean Corp Hgb Conc 32.4 g/dL (32-36); Mean Corpuscular Hgb 28.9 pg (27.0-32.0); Mean Corpuscular Volume 89.4 fL (81-99); Mean Platelet Vol. 10.1 fl (6.2-12.0); Monocyte# 0.51 X10^3/uL; Monocyte% 6.6 % (0-10); NRBC Flagged by Analyzer 0 % (0-5); Neutrophil # 5.49 X10^3/uL (2.7-7.7); Neutrophil % 71.2 % (47-70); Platelet Count 339 K/mm3 (150-450); RBC Distribution Width CV 13.3 % (11.6-14.6); RBC Distribution Width SD 43.6 fl (35.1-43.9); Red Blood Count 4.32 M/mm3 (4.2-5.4); White Blood Count 7.7 K/mm3 (4.4-11.0)
[2023-05-18 15:22] LABS: NATERA MAILED SPECIMEN
[2023-05-18 16:36] LABS: HIV - WCH Non-Reactive (Nonreactive); Hepatitis B Surface Antigen Non-Reactive (Nonreactive); Hepatitis C Antibody Non-Reactive (Nonreactive); Rubella IgG Reactive (Nonreactive); Syphilis Antibodies Non-reactive
[2023-05-18 16:37] LABS: hCG Titer Quant., Serum 78670 mIU/mL (1-3)
== END | disposition home or self-care (01) ==
PROVIDERS: Referring Provider Obstetrics & Gynecology; Visit Provider Obstetrics & Gynecology
DX: O09.511 Supervision of elderly primigravida, first trimester (principal); Z3A.00 Weeks of gestation of pregnancy not specified
CPT/HCPCS: 36415; 84702; 85025; 86703; 86762; 86780; 86803; 86850; 86900; 86901; 87340

== ENCOUNTER → 2023-06-16 | Outpatient (CLI) | payer MEDICAID, SELFPAY ==
--- NOTE | 2023-06-16 11:22 | US_ITS ---
STUDY: SECOND AND THIRD TRIMESTER OBSTETRICAL ULTRASOUND REASON FOR EXAM: Female, 37 years old . History of low-lying placenta. LMP: March 14, 2023. TECHNIQUE: Transabdominal and Transvaginal TECHNICAL QUALITY: Adequate. PRIOR ULTRASOUND: None. FINDINGS: There is a single intrauterine fetus. The fetus is in a breech presentation. There is demonstrated cardiac activity with a heart rate of 144 bpm. There is a normal amniotic fluid volume. The largest amniotic fluid pocket measures 2.5 cm x 6.3 cm. The amniotic fluid index (THEODORE) is within normal limits. The placenta is anterior in location and is not low lying. The tip of the placenta is 2.6 cm from the cervical os. There are Grade 0 placental changes. The cervix measures 4.0 cm in length. The adnexal regions are not visualized. BIOMETRY: BPD: 2.5 cm: 14 weeks, 2 days HC: 19.3 cm: 14 weeks, 2 days AC: 17.2 cm: 13 weeks, 5 days FL: 1.3 cm: 13 weeks, 6 days CI: 79% FL/BPD: 52% FL/HC: FL/AC: 18% HC/AC: 1.29 age by current US: 14 weeks, 0 days. VIVIAN by current US: December 15, 2023. Estimated weight: 84 grams, +/- 13 grams, 59 %. Age by LMP: 13 weeks, 3 days. VIVIAN by LMP: December 19, 2023. US/Init OB < 14Wks US IMPRESSION: Single live intrauterine gestation with a mean gestational age of 14 weeks. The tip of the placenta lies 2.6 cm from the cervical os. Electronically Signed: Tima Humphries MD at 15:17 EST ,
--- OUTSIDE RECORDS SUMMARY | 2023-06-16 13:20 | XMS RPT_ITS | CCD ---
Author Name Unknown Address [address] [place] [address] Organization [facility] Care Team Providers Care Medical Research Scientist Name Role Phone Adan Jose R Unavailable Unavailable Mcfarlane, Albino Unavailable Unavailable Adan, Jose R Unavailable Unavailable Adan, Jose R Unavailable Unavailable Mcfarlane, Albino Unavailable Unavailable Adan, Jose R Unavailable Unavailable Adan, Jose R Unavailable Unavailable Mcfarlane, Albino Unavailable Unavailable Adan, Jose R Unavailable Unavailable Mcfarlane, Albino Unavailable Unavailable Tizzano, Rolando P Unavailable Unavailable Mcfarlane, Albino Unavailable Unavailable Tizzano, Rolando P Unavailable Unavailable Mcfarlane, Albino Unavailable Unavailable Tizzano, Rolando P Unavailable Unavailable Mcfarlane, Albino Unavailable Unavailable Tizzano, Rolando P Unavailable Unavailable Tizzano, Rolando P Unavailable Unavailable Mcfarlane, Albino Unavailable Unavailable Tizzano, Rolando P Unavailable Unavailable Tizzano, Rolando P Unavailable Unavailable Mcfarlane, Albino Unavailable Unavailable MALVIN SABILLON Unavailable Unavailable TIZZANO, ROLANDO P Unavailable Unavailable CAMPBELL FRITZ Attending Unavailable DARNELL OG Referring Unavailabl e NO PRIMARY CAREMD Primary Care Unavailable NATALIE MOSS Attending Unavailable DARNELL OG Referring Unavailabl e NO PRIMARY CAREMD Primary Care Unavailable CORY DREW Attending Melinda vailable CORY DREW Primary Care Melinda vailable Cory Drew Primary [facility] Allergies Allergy Classification Reported Allergen(s) Allergy Type Date of Onset Reaction(s) Facility (4 sources) Penicillins; Translations: [penicillins] Propensity to adverse reactions to drug (disorder) 6 [facility] Medications Current Medications Medication Drug Class(es) Dates Sig (Normalized) Sig (Original) vitamin with Ca-Iron-FA 27-1 mg Tab (1 source) take 1 tablet by emerita th once daily vitamin with Ca-Iron-FA 27-1 mg Tab Take 1 tablet by mouth daily . 0 Active Problems Active Problems Problem Classification Problem Date Documented Da te Episodic/Chronic Abdominal pain (1 source) Pain in female pelvis; Translations: [Pain in female pelvis] Onset: 06-19-2020 06-19-2020 Episodic Hemorrhage during ; abruptio placenta; placenta previa (1 source) Hemorrhagic complication of ; Translations: [Hemorrhage affecting ] Onset: 06-19-2020 06-19-2020 Episodic Other complications of (1 source) ultrasound scan abnormal; Translations: [Abnormal ultrasound] Onset: 06-19-2020 06-19-2020 Episodic Other non-traumatic joint disorders (2 sources) Acute ankle pain; Translations: [Acute right ankle pain] Onset: 06-19-2020 06-19-2020 Episodic Polyhydramnios and other problems of amniotic cavity (1 source) Oligohydramnios; Translations: [Oligohydramnios] Onset: 06-19-2020 06-19-2020 Episodic Residual codes; unclassified (1 source) H/O: section; Translations: [H/O: section] Onset: 06-19-2020 06-19-2020 Episodic Residual codes; unclassified (1 source) H/O: ; Translations: [History of ] Onset: 06-19-2020 06-19-2020 Episodic Unclassified (1 source) Unknown / UNK(Unknown) Onset: 05-12-2016 Unclassified (1 source) Patient encounter status; Translations: [Encounter to establish care] Unclassified (1 source) Positive measurement finding; Translations: [Positive measurement finding] Onset: 06-19-2020 06-19-2020 Unclassified (1 source) Influenza vaccination declined; Translations: [Influenza vaccination declined] Onset: 06-19-2020 06-19-2020 Unclassified (1 source) Anti-D globulin needed; Translations: [Need for rhogam due to Rh negative mother] Onset: 04-15-2016 06-19-2020 Past or Other Problems Problem Classification Problem Date Documented Da te Episodic/Chronic Other aftercare (1 source) Follow-up status; Translations: [Evaluate anatomy not seen on prior sonogram] Onset: 05-18-2018 06-19-2020 Episodic Other and delivery including normal (1 source) ; Translations: [] Onset: 05-12-2016 06-19-2020 Episodic Results Test Name Value Interpretation Reference Range Facil ity Vital Signs Date Time Vital Sign Value Performing Clinician Faci lity 06-19-2020 14:58-0500 BMI (Body Mass Index) 32.2 kg/m2 [facility] 06-19-2020 14:58-0500 Body Temperature 98.01 [degF] [facility] 06-19-2020 14:58-0500 Body weight 85.09 kg [facility] 06-19-2020 14:58-0500 BP Diastolic 81 mm[Hg] [facility] 06-19-2020 14:58-0500 BP Systolic 124 mm[Hg] [facility] 06-19-2020 14:58-0500 Height 162.6 cm [facility] 06-19-2020 14:58-0500 Pulse (Heart Rate) 83 /min [facility] 06-19-2020 14:58-0500 Pulse Oximetry 99 % [facility] 06-19-2020 14:58-0500 Respiratory Rate 16 /min [facility] Encounters Encounter Date Encounter Type Care Provider Facility Start: 06-19-2020 End: 06-19-2020 [facility] Start: 06-19-2020 End: 06-19-2020 Office outpatient new 30 minutes Cory Felix Jacobarsen Kat Work Phone: [facility] Procedures Date Procedure Procedure Detail Performing Clinician Start: 06-19-2020 Adult depression scr eening assessment Cory Kat Plan of Treatment Date Care Activity Detail Author Start: 06-16-2028 Tetanus vaccination Tetanus: Every 1 0yrs [facility] Start: 12-18-2020 End: 12-18-2020 Office Visit 12/18/2020 Office Visit Primary Care Cory Drew MD [address] [place] [address] [phone] [facility] Start: 01-15-2020 Influenza vaccinatio n given Sequential Influenza Vaccine (#1) [facility] Start: 07-23-2005 Hepatitis C antibody , confirmatory test Hepatitis C Screening [facility] Start: 07-23-2002 HIV screening HIV Screening [facility] Start: 1999 Adolescent depressio n screening assessment Depression Screening (PHQ9) [facility] Start: 07-23-1990 History and physical examination, annual for health maintenance Wellness Visit [facility] Start: 1987 Screening for malign ant neoplasm of cervix Pap Smear [facility] Payers Date Payer Category Payer Unknown [id number] 2019 Unknown [employer]DEN [employer]LES/ISAI/HMO/PPO [id number] 2019-Present [id number] 2016 Unknown 1987 Unknown [id number] 1987 Unknown [id number] 1987 Unknown [id number] Unknown [id number] Social History Date Type Detail Facility Start: 06-19-2020 Tobacco smoking status NHIS Never sm iler [facility] Start: 06-19-2020 Tobacco use and exposure Never used [facility] Start: 06-19-2020 Alcohol intake Ex-drinker (finding) [facility] Sex Assigned At Not on file [facility] Exposure to SARS-CoV-2 (event) Not sure [facility] Summary Purpose Family History No Family History Records FoundNo Family History Records FoundNo Family History Records FoundNo Family History Records FoundNo Family History Records FoundNo Family History Records Found Advance Directives Documents on File Type Date Recorded Patient Fine Hairer Expl anation Advance Directives and Living Will Instructions * Patient Instructions* Cory Drew MD - 06/19/2020 4:05 PM EST Problem List Items Addressed This Visit Other Acute right ankle pain Most likely a sprain , improving from last week. - try more off load exercises - if no improvement in a month let me know - stretching exercise. Other Visit Diagnoses Encounter to establish care - Primary If any referrals were placed at the time of your visit please allow 2 weeks for processing. If you haven't heard from anyone within 2 weeks please contact my office so we can look into the status of your referral. If you were given any labs today please ensure they are completed according to the directions given. Once labs are completed please allow 1-2 weeks for us to receive the results, review them, and letyou know what steps, if any, are needed next. If you haven't heard from us after that please call to inquire. If labs were ordered to be done PRIOR to your next visit we will discuss the results at the time ofyour office visit. If any procedures or imaging studies were ordered that must be prior authorized please give us 2 weeks to get them approved. Once approved someone should call you to schedule them or give you a date and time that they were scheduled for. If you haven't heard anything within 2 weeks of the office visit please call the office so we can look into their status. Customer Service/Billing Questions: [phone] [facility] Assistance: [phone] or [phone] Financial Assistance: [phone] or [phone] As of May 21, 2019 my schedule will be changing: Tuesday 7 am to 5 pm Tuesday 7 am to 5 pm Tuesday closed 7 am to 5 pm Tuesday 7 am to 1 pm documented in this encounter History of Present Illness * Cory Drew MD - 06/19/2020 3:05 PM EST Chief Complaint Patient presents with [facility] 26 WEEKS, EST DELIVERY 09/18/2020 Ankle Injury FELL ON ICE 1 WEEK AGO, SEEN AT [facility] HPI: Tammy Hagan is a 34-year-old female fairly healthy presenting today to [facility] care in our clinic. Patient is currently 26 weeks with x2. No specific concerns today other than ankle pain follow-up. Ankle injury: Fell backwards on ice 1-1/2-week ago, at that time she has been evaluated through [facility] with , x-rays were done which showed no fractures at that time she was told that she is having an ankle sprain and was given an ankle support to help with further stabilization. At home she has been icing her ankle in addition to taking 1 dose of Tylenol after she returned from the hospital since that time she has been functioning fine but still endorsing some pain with twisting movements. Shethinks her pain is improving and wants to get it checked today. Anxiety: Situational, mainly triggered by attending any Callings or funerals, she reports having a pill at home that she takes on as-needed basis that helps calm her down when she gets exposed to anyanxiety/panic attacks in those encounters, cannot remember the name but she confirms it is not a nakul zodiazepine. : Has been going fine so far, denies any history of gestational diabetes or hypertension, compliant on her vitamins and her mood today is good. Past Medical History: Diagnosis Date Anxiety Past Surgical History: Procedure Laterality Date SECTION X2 Family History Problem Relation Age of Onset No Known Problems Mother Coronary artery disease Father No Known Problems Sister No Known Problems Brother Cancer Maternal Aunt 50 Cancer Maternal Uncle thyroid Depression Maternal Grandmother Cancer Maternal Aunt breast Social History Tobacco Use Smoking status: Never Smoker Smokeless tobacco: Never Used Substance Use Topics Alcohol use: Not Currently Drug use: Never Review of Systems Physical Exam Constitutional: General: She is not in acute distress. Appearance: Normal appearance. She is not ill-appearing. HENT: Head: Normocephalic and atraumatic. Eyes: Extraocular Movements: Extraocular movements intact. Conjunctiva/sclera: Conjunctivae normal. Pupils: Pupils are equal, round, and reactive to light. Neck: Musculoskeletal: Normal range of motion and neck supple. Cardiovascular: Rate and Rhythm: Normal rate and regular rhythm. Pulses: Normal pulses. Heart sounds: Normal heart sounds. No murmur. No gallop. Pulmonary: Effort: Pulmonary effort is normal. Breath sounds: Normal breath sounds. No wheezing, rhonchi or rales. Chest: Chest wall: No tenderness. Abdominal: General: Abdomen is flat. Bowel sounds are normal. There is no distension. Palpations: Abdomen is soft. Tenderness: There is no abdominal tenderness. There is no right CVA tenderness, left CVA tenderness, guarding or rebound. Musculoskeletal: Normal range of motion. General: Tenderness (mild tenderness over talar dome, small bruise is seen along MCP joints of second and third right toes. No mandibular tenderness appreciated. Normal free range of motion active and passive, no swelling appreciated.) present. Right lower leg: No edema. Left lower leg: No edema. Skin: General: Skin is warm. Findings: No erythema or rash. Neurological: General: No focal deficit present. Mental Status: She is alert and oriented to person, place, and time. Sensory: No sensory deficit. Motor: No weakness. Gait: Gait normal. Psychiatric: Mood and Affect: Mood normal. Behavior: Behavior normal. Thought Content: Thought content normal. Judgment: Judgment normal. OARRS/NARxCHECK Report Received and Assessed: No data found Date controlled substance agreement signed: No data found Date of last drug screen: No data found Functional Assessment: No data found Patient's Medications New Prescriptions No medications on file Previous Medications VITAMIN WITH CA-IRON-FA 27-1 MG TAB Take 1 tablet by mouth daily . Modified Medications No medications on file Discontinued Medications No medications on file Health Maintenance Due Topic Date Due Pap Smear 1987 Wellness Visit 07/23/1990 Depression Screening (PHQ9) 1999 HIV Screening 07/23/2002 Hepatitis C Screening 07/23/2005 Sequential Influenza Vaccine (1) 01/15/2020 Assessment & Plan Problem List Items Addressed This Visit Other Acute right ankle pain Most likely a sprain , improving from last week. - try more off load exercises - if no improvement in a month let me know - stretching exercise. Other Visit Diagnoses Encounter to establish care - Primary Return in about 6 months (around 12/17/2020) for Annual Exam. CORY DREW MD [facility] [address] [facility] [address] [facility] [id number] Dept: [phone] documented in this encounter Assessments Diagnosis Encounter to establish care- Primary Acute right ankle pain Additional Source Comments INFORMATION SOURCE (unrecogn ized section and content) DATE CREATED AUTHOR AUTHOR'S ORGANIZ ATION 11/08/2017 [facility] DATE CREATED AUTHOR AUTHOR'S ORGANIZ ATION 11/09/2017 [facility] DATE CREATED AUTHOR AUTHOR'S ORGANIZ ATION 06/05/2018 [facility] DATE CREATED AUTHOR AUTHOR'S ORGANIZ ATION 06/10/2020 [facility] DATE CREATED AUTHOR AUTHOR'S ORGANIZ ATION 06/20/2020 [facility] Reason for Visit (unrecogniz ed section and content) Assessment & Plan Note - Cory Drew MD - 06/19/2020 3:46 PM EST Miscellaneous Notes (unrecog nized section and content) Associated Problem(s): Acute right ankle pain Most likely a sprain , improving from last week. - try more off load exercises - if no improvement in a month let me know - stretching exercise. documented in this encounter FOR RECORDS PERTAINING TO PATIENTS WHO ARE OR HAVE BEEN ENROLLED IN A CHEMICAL DEPENDENCY/SUBSTANCEABUSE PROGRAM, SOME INFORMATION MAY BE OMITTED. This clinical summary was aggregated from multiple sources. Caution should be exercised in using it in the provision of clinical care. This summary normalizes information from multiple sources, and as a consequence, information in this document may materially change the coding, format and clinical context of patient data. In addition, data may be omitted in some cases. CLINICAL DECISIONS SHOULD BE BASED ON THE PRIMARY CLINICAL RECORDS. [facility]. provides no warranty or guarantee of the accuracy or completeness of information in this document.
== END | disposition home or self-care (01) ==
PROVIDERS: Referring Provider Obstetrics & Gynecology; Visit Provider Obstetrics & Gynecology
DX: O44.41 Low lying placenta NOS or without hemorrhage, first trimester (principal); Z3A.00 Weeks of gestation of pregnancy not specified
CPT/HCPCS: 76801

== ENCOUNTER → 2023-09-27 | Outpatient (CLI) | payer MEDICAID, SELFPAY ==
[2023-09-27 10:47] LABS: Absolute Lymphocyte Count 1.47 X10^3/uL (0.83-4.51); Absolute Neutrophil Count 4.9 X10^3/uL (2.0-7.7); Basophil# 0.04 X10^3/uL; Basophil% 0.6 % (0-1); Eosinophil# 0.31 X10^3/uL; Eosinophils% 4.3 % (0-5); Hematocrit 31.2 % (37-47); Hemoglobin 10.4 g/dL (12.0-15.0); Lymphocyte # 1.47 X10^3/ul (0.83-4.51); Lymphocyte % 20.4 % (19-41); Mean Corp Hgb Conc 33.3 g/dL (32-36); Mean Corpuscular Hgb 29.5 pg (27.0-32.0); Mean Corpuscular Volume 88.6 fL (81-99); Mean Platelet Vol. 10.6 fl (6.2-12.0); Monocyte# 0.46 X10^3/uL; Monocyte% 6.4 % (0-10); NRBC Flagged by Analyzer 0 % (0-5); Neutrophil # 4.89 X10^3/uL (2.7-7.7); Neutrophil % 67.7 % (47-70); Platelet Count 254 K/mm3 (150-450); RBC Distribution Width CV 13.1 % (11.6-14.6); RBC Distribution Width SD 42.1 fl (35.1-43.9); Red Blood Count 3.52 M/mm3 (4.2-5.4); White Blood Count 7.2 K/mm3 (4.4-11.0)
[2023-09-27 11:12] LABS: Glucose Challenge Gest 1H 50g 95 mg/dL (70-140)
[2023-09-27 11:49] LABS: HIV - WCH Non-Reactive (Nonreactive); Syphilis Antibodies Non-reactive
== END | disposition home or self-care (01) ==
PROVIDERS: Referring Provider Obstetrics & Gynecology; Visit Provider Obstetrics & Gynecology
DX: O09.90 Supervision of high risk pregnancy, unspecified, unspecified trimester (principal); Z3A.00 Weeks of gestation of pregnancy not specified
CPT/HCPCS: 36415; 82950; 85025; 86703; 86780; 86850; 86900; 86901